=== PATIENT | male | born 1975 | race African-American/Black ===

== ENCOUNTER 2023-10-29 14:16 | Inpatient (IN) | payer SELFPAY ==
[~2023-10-29] VITALS: Ht 180.3 cm; Wt 91.0 kg
[2023-10-29] VITALS (25 sets, daily range): BP systolic 101–144; BP diastolic 61–90
[2023-10-29] MEDS ORDERED: AMLODIPINE BESYL5 MG PO (14:51)
[2023-10-29] MEDS ORDERED: MORPHINE SULFATE 4 MG/ML VIAL IV STA (14:53)
[2023-10-29] MEDS ORDERED: ONDANSETRON HCl 4 MG/2 ML SDV IV STA (14:53)
[2023-10-29] MEDS ORDERED: SODIUM CHLORIDE 0.9% 1,000 ML IV STA ×2 (14:53→20:06)
[2023-10-29 15:38] LABS: BASO% 0.1 % (0-3); HEMATOCRIT 46.6 % (39.0-50.0); IMMATURE GRANULOCYTES 0.1 % (0.0-5.0); LYMPH% 13.4 % (15-41); MEAN CELL VOLUME 85.7 fL CALC (80.0-100.0); MEAN CORPUSCULAR HGB 29.4 pG CALC (26.0-32.0); MEAN CORPUSCULAR HGB CONC 34.3 g/dL CAL (32.0-36.0); MONO% 5.8 % (2-13); NEUT# 7.14 thou/uL (1.82-7.42); NEUT% 80.6 % (42-76); RED BLOOD COUNT 5.44 mill/uL (4.70-6.10); RED CELL DISTRI WIDTH 14.1 % (11.5-15.5)
[2023-10-29 15:39] LABS: URINE BILIRUBIN - DIPSTICK Negative (NEGATIVE); URINE BLOOD DIPSTICK Negative (NEGATIVE); URINE GLUCOSE - DIPSTICK Negative (NEGATIVE); URINE KETONE Negative (NEGATIVE); URINE LEUK ESTERASE Negative (NEGATIVE); URINE NITRITE - DIPSTICK Negative (Negative); URINE PH 6.5 (4.5-8.0); URINE PROTEIN - DIPSTICK Negative (NEG-TRACE); URINE SPECIFIC GRAVITY 1.025; URINE UROBILINOGEN - DIPSTICK 0.2 E.U./dL (0.2)
[2023-10-29 15:45] LABS: URINE COLOR Yellow
[2023-10-29 15:48] LABS: ALBUMIN 4.5 g/dL (3.2-5.0); ALKALINE PHOSPHATASE 87 u/l (38-126); AMYLASE 93 u/l (30-110); ANION GAP 9 (6-22 (CALC)); BILIRUBIN, TOTAL 0.8 mg/dL (0.2-1.3); BUN 16 mg/dL (9-20); BUN/CREATININE RATIO 17 (12-20 (CALC)); CARBON DIOXIDE 28 mmol/l (22-30); CHLORIDE 104 mmol/l (95-108); CREATININE 0.9 mg/dL (0.7-1.3); ESTIMATED GFR 105 ML/MIN (>=90 (CALC)); LIPASE 50 u/l (23-300); POTASSIUM 3.9 mmol/l (3.5-5.1); SGOT/AST 36 u/l (17-59); SODIUM 137 mmol/l (137-146); TOTAL PROTEIN 8.6 g/dL (6.3-8.2)
[2023-10-29] MEDS ORDERED: MORPHINE SULFATE 4 MG/ML VIAL IV ONE (15:50)
[2023-10-29] MEDS ORDERED: SODIUM CHLORIDE 0.9% 1,000 ML IV ONE (15:55)
--- NOTE | 2023-10-29 15:55 | NUR ---
LACTIC 2.4, SOTO AWARE.
--- NOTE | 2023-10-29 17:59 | NUR ---
LACTIC 2.5, CHARLES MADE AWARE.
[2023-10-29] MEDS ORDERED: SODIUM CHLORIDE 0.45% 1,000 ML IV ONE (18:00)
[2023-10-29] MEDS ORDERED: oxyCODONE 5MG/ ACETAMINOPHEN 325MG TAB PO ONE (18:10)
[2023-10-29] MEDS ORDERED: METOPROLOL TARTRATE 5 MG/5 ML VIAL IV ONE ×2 (18:55→19:50)
[2023-10-29] MEDS ORDERED: DICYCLOMINE HCL 20 MG/2 ML VIAL IM ONE (18:55)
[2023-10-29] MEDS ORDERED: HYDROmorphone HCL 2 MG/AMP IV ONE ×2 (19:05→20:20)
--- NOTE | 2023-10-29 19:25 | NUR ---
ART BEDSIDE FOR DISCUSSION OF RESULTS AND FURTHER PLAN OF CARE AT THIS TIME.
--- NOTE | 2023-10-29 19:30 | NUR ---
PT MEDICATED PER ALL MD ORDERS AT THIS TIME, PT UPDATED ON CONTINUOUS PLAN OF CARE WITH NO FURTHER QUESTIONS OR CONCERNS AT THIS TIME, PT VOICES APPRECIATION OF CARE, IVF AND ABX RUNNING AT THIS TIME, PT VOICES MILD RELIEF AT THIS TIME, AWAITING FOR REPEAT LACTIC ACID REDRAW AFTER IVF AT THIS TIME PER MD. FAMILY AT BEDSIDE.
[2023-10-29] MEDS ORDERED: MOTRIN800 MG PO (19:31)
[2023-10-29] MEDS ORDERED: CIPROFLOXACN500 MG PO (19:31)
[2023-10-29] MEDS ORDERED: KETOROLAC TROMETHAMINE 30 MG/ML SDV IV ONE (20:40)
[2023-10-29] MEDS ORDERED: ACETAMINOPHEN 325 MG/TAB PO ONE (20:45)
--- NOTE | 2023-10-29 20:50 | NUR ---
AT BEDSIDE FOR DISCUSSION DUE TO PT'S FAMILY CONCERNS AT THIS TIME.
[2023-10-29] MEDS ORDERED: PROMETHAZINE HCL 25 MG/ML AMP IV ONE (20:55)
--- NOTE | 2023-10-29 21:10 | NUR ---
PT MEDICATED PER ORDERS AT THIS TIME, PT VERBALIZES APPRECIATION OF CARE, PT VOICES UNDERSTANDING OF CONTINUED PLAN OF CARE AND PLAN FOR ADMISSION AT THIS TIME. PT AWAITING ALL FURTHER ORDERS/ROOM ASSIGNMENT.
[2023-10-29] MEDS ORDERED: AMLODIPINE BESY10 MG PO (21:13)
[2023-10-29] MEDS ORDERED: AVALIDE 150-12.1 TAB PO (21:40)
[2023-10-29] MEDS ORDERED: DiphenhydrAMINE HCL 50 MG/ML SDV IV PRN (21:45)
[2023-10-29] MEDS ORDERED: MORPHINE SULFATE 4 MG/ML VIAL IV PRN (21:45)
[2023-10-29] MEDS ORDERED: HYDROmorphone HCL 2 MG/AMP IV PRN (21:45)
[2023-10-29] MEDS ORDERED: ACETAMINOPHEN 325 MG/TAB PO PRN (21:45)
[2023-10-29] MEDS ORDERED: Pantoprazole Sodium 40 MG VIAL (Protonix) IV SCH (21:45)
[2023-10-29] MEDS ORDERED: MAGNESIUM HYDROXIDE 30 ML UDC PO PRN (21:45)
[2023-10-29] MEDS ORDERED: KETOROLAC TROMETHAMINE 30 MG/ML SDV IV PRN (21:45)
[2023-10-29] MEDS ORDERED: LACTATED RINGER'S 1,000 ML IV PRN (21:45)
[2023-10-29] MEDS ORDERED: ONDANSETRON HCl 4 MG/2 ML SDV IV PRN (21:45)
[2023-10-29] MEDS ORDERED: METOCLOPRAMIDE HCL 10 MG/2 ML SDV IV PRN (21:50)
--- NOTE | 2023-10-29 22:00 | NUR ---
REPORT CALLED TO MILA MARCUS ON MS2 AT THIS TIME. PT AWAITING TRANSPORT TO [facility].
[2023-10-29] MEDS ORDERED: hydrALAZINE HCL 20 MG/ML VIAL(1 ML) IV PRN (22:10)
--- NOTE | 2023-10-29 22:15 | NUR ---
PT TRANSPORTED TO [facility] AT THIS TIME [facility]IA [facility]. PT AMB TO BR ON MS2 WITH STEADY GAIT AT THIS TIME, PT VOICES APPRECIATION OF CARE, NURSE AT BEDSIDE.
[2023-10-29] MEDS ORDERED: LABETALOL HCL 20 MG/ 4 ML CARTRG IV PRN (22:35)
--- NOTE | 2023-10-29 23:06 | NUR ---
PT TRANSPORTED BY ED STAFF TO ROOM 269 VIA WHEELCHAIR WITH O2 AT 2216. PT IS A&O X3. PT DOES NOT COMPLAIN OF ANY PAIN AT THIS TIME. ABDOMEN IS DISTENDED AND FIRM. PT IS ABLE TO AMBULATE INDEPNDENTLY. PT IS ABLE TO COMMUNICATE AND MAKE NEEDS KNOWN. LUNGS SOUNDS CLEAR IN THE UPPER LOBES, DIMINISHED IN THE LOWER LOBES. PERIPHERAL PULSES STRONG. NC IN PLACE WITH 2L O2. BOWEL SOUNDS HYPOACTIVE IN ALL FOUR QUADRANTS. THE PT DENIES NAUSEA AT THIS TIME. 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 PT EDUCATED ON MEDICATION SCHEDULE AND PLAN OF CARE. SAFETY PRECAUTIONS IN PLACE. PT EDUCATED ON ORDER FOR STOOL SAMPLE, PT DENIES NEEDING TO GO AT THIS TIME.
[2023-10-30 04:35] VITALS: BP 118/79
--- NOTE | 2023-10-30 04:52 | NUR ---
PT RESTING IN BED WITH EYES CLOSED AT THIS TIME. THIS DESIGN ENG OBTAINED VS. PT DOES COMPLAIN OF ABDOMINAL DISCOMFORT. DID OFFER PAIN MEDICATION PER EMAR, PT REFUSED AT THIS TIME. NO FURTHER COMPLAINTS VOICED FROM PT. NC IN PLACE AT 2L O2. CALL LIGHT IN REACH AND SAFETY PRECAUTIONS IN PLACE.
[2023-10-30 05:15] LABS: BASO% 0.1 % (0-3); HEMATOCRIT 42.1 % (39.0-50.0); HEMOGLOBIN 14.4 g/dl (14.0-18.0); IMMATURE GRANULOCYTES 0.7 % (0.0-5.0); LYMPH% 7.4 % (15-41); MEAN CELL VOLUME 86.3 fL CALC (80.0-100.0); MEAN CORPUSCULAR HGB 29.5 pG CALC (26.0-32.0); MEAN CORPUSCULAR HGB CONC 34.2 g/dL CAL (32.0-36.0); MONO% 4.8 % (2-13); NEUT# 13.39 thou/uL (1.82-7.42); RED BLOOD COUNT 4.88 mill/uL (4.70-6.10); RED CELL DISTRI WIDTH 14.1 % (11.5-15.5)
[2023-10-30 05:29] LABS: BILIRUBIN, TOTAL 1.1 mg/dL (0.2-1.3); CHOLESTEROL HDL RATIO 2.9 (<4.4 (CALC)); CREATININE 0.9 mg/dL (0.7-1.3); MAGNESIUM 1.3 mg/dL (1.6-2.3); POTASSIUM 4.2 mmol/l (3.5-5.1)
[2023-10-30 05:33] LABS: ALBUMIN 3.4 g/dL (3.2-5.0); TOTAL PROTEIN 6.5 g/dL (6.3-8.2)
[2023-10-30] MEDS ORDERED: PIPERACILLIN Sodium-Tazobactam 3.375 GM in SODIUM CHLORIDE 0.9% 100 ML IV SCH (06:30)
[2023-10-30] MEDS ORDERED: MAGNESIUM SULFATE HEPTAHYDRATE 100 ML IV SCH (07:00)
[2023-10-30 07:17] VITALS: BP 130/84
--- NOTE | 2023-10-30 07:45 | NUR ---
PATIENT A/O X3; ON 2L , NOT DEPENDEDNT AT HOME; DENIED ANY N/D/V AT THIS TIME; COMPLAINT OF DISCOMFORT IN RECTAL AREA, THAT LEADS TO SOME ISSUES URINATING; IV SITE CLEAN AND INTACT RUNING WITH LR @125; MEDICATION REVIWED; CALL LIGHT WITHIN REACH,VERBALIZED UNDERSTANDING ON HOW TO USE, PERSONAL ITEMS WITHIN REACH, BED IN [facility]
[2023-10-30] MEDS ORDERED: TAMSULOSIN HCL 0.4 MG CAP PO SCH (08:30)
[2023-10-30] MEDS ORDERED: Polyethylene Glycol 3350 17 GM/PKT PO SCH (09:00)
[2023-10-30] MEDS ORDERED: PIPERACILLIN Sodium-Tazobactam 4.5 GM in SODIUM CHLORIDE 0.9% 100 ML IV SCH (12:00)
--- NOTE | 2023-10-30 12:18 | NUR ---
PATEINT A/O X3; ON 2L OF ; NOT DEPENDENT; BREATHING UNLABORED AND EVEN; FAMILY IN ROOM WITH PATIENT; STATES HIS PAIN REDUCED TO A 1 AND FEVER WAS BROKEN; AT 1100 IT WAS 101.5 RECHECK TO 98.0; DENED ANY N/D/V AT THIS TIME; IV SITE CLEAN AND INTACT RUNNING WIH ZOSYN AND LR; MEDICATION REVIWED; URINE SAMPLE COLLECTED AND SENT TO LABS, URINE A DARK LUX COLOR; CALL LIGHT WITHIN REACH,VERBALIZED UNDERSTANDING ON HOW TO USE,PEROSNAL ITEMS WITHIN REACH, BEDIN LOWEST POSTION
--- NOTE | 2023-10-30 16:00 | NUR ---
PATIENT RESTING IN BED; WATCHING TV; ON 2L OF ; BREATHING UNLABORED AND EVEN; STATED SOME DISCOMFORT IN RECTAL AREA; AND REQUESTED A TEMP CHECK; TEMP WAS 99.9 TORADOL WAS GIVEN UNABLE TO GIVE TYLENOL DUE TO TIME SCHDULE; COOL CLOTH WAS GIVE; FAMILY IN ROOM WITH PATIENT; MEDICATION REVIWED; TEXTED DR. PA OF TEMP STATUS; TELE LEADS WAS APPLIED PER ORDER; CALL LIGHT WITHIN REACH,VERBALIZDED UNDERSTANDING ON HOW TO USE, PERSONAL ITEMS IWTHIN REACH, BED IN LOWEST POSTION; BED IN LOWEST POSTION
[2023-10-30] MEDS ORDERED: SODIUM CHLORIDE 0.9% 1,000 ML IV SCH (16:50)
[2023-10-30] MEDS ORDERED: VANCOMYCIN HCL 1 GM in SODIUM CHLORIDE 0.9% 250 ML IV SCH (17:10)
--- NOTE | 2023-10-30 17:21 | NUR ---
PATIENT HEART RATE 130-140, MESSAGED DR. PA WHICH HE ORDERED A BOLUS OF NS; STAT EKG AND BLADDER SCAN; EKG COMPLETED AND SENT TO DR. PA; PATIENT TOLERATING BOLUS WE;; COOL WARM CLOTH PROVIDED FOR TEMP; BLADDER SCAN SHOWED 181; PATIENT STATES HE HAVE BEEN URINATING AND DOES NOT HAVE ANY URGE TO URINATE; DR. PA WILL BE UPDATED AFTER BOULUS FOR ANY NEW ORDERS
[2023-10-30] MEDS ORDERED: HYDROmorphone HCL 2 MG/AMP IV PRN (17:30)
[2023-10-30 17:33] LABS: BASO% 0.1 % (0-3); HEMATOCRIT 37.2 % (39.0-50.0); IMMATURE GRANULOCYTES 0.5 % (0.0-5.0); LYMPH% 6.9 % (15-41); MEAN CELL VOLUME 85.7 fL CALC (80.0-100.0); MEAN CORPUSCULAR HGB CONC 34.9 g/dL CAL (32.0-36.0); MONO% 5.5 % (2-13); NEUT# 15.12 thou/uL (1.82-7.42); RED BLOOD COUNT 4.34 mill/uL (4.70-6.10)
[2023-10-30] MEDS ORDERED: VANCOMYCIN HCL 1 GM in SODIUM CHLORIDE 0.9% 250 ML IV ONE (17:35)
[2023-10-30] MEDS ORDERED: SODIUM CHLORIDE 0.9% 500 ML IV ONE (18:05)
--- NOTE | 2023-10-30 18:24 | NUR ---
HEART RATE STILL ELEVATED IN THE 130, DR. PA ORDERED BOLUS 500 AND CRITICAL WAS CALLED FOR [facility] [place] FOR 7.290
[2023-10-30 18:30] VITALS: BP 141/84
[2023-10-30 18:34] VITALS: BP 141/84
[2023-10-30] MEDS ORDERED: VANCOMYCIN HCL 1 GM/VIAL IV SCH (19:00)
--- NOTE | 2023-10-30 20:15 | NUR ---
RECEIVED REPORT FROM [facility]SE PALMIRA CERDA LPN. PT NOTED SITTING UP IN BED HIGH FOWLERS, AND DAUGHTER PRESENT IN ROOM. PT DENIES ANY PAIN AT THIS TIME BUT DOES C/O ABD TIGHTNESS AND SORENESS. ABD IS DISTENDED AND FIRM, BOWEL SOUNDS HYPOACTIVE IN ALL 4 QAUDRANTS. ABD TENDERNESS IN LUQ,LLQ, AND UMBILICUS REGION. PT DENIES ANY BM TODAY, STATES LAST BM WAS 10/27/23. ADMINISTERED PT MEDICATION PER EMAR FOR CONSTIPATION. ENCOURAGED PT TO AMBULATE UP AND DOWN HALLWAY TO INCREASE BOWEL ACTIVITY. PT WAS ABLE TO AMBULATED WTIH STEADY GAIT, DID BECOME SOB ON EXCERTION. LUNG SOUNDS CLEAR DID PLACE PT ON 2L 02 NC. PT DID C/O CHILLS, ORAL TEMP TAKEN READING 99.7F, DID ADMINSTER PT TYELONOL PER EMAR FOR FEVER. PT DOES HAVE TELE MONITOR IN PLACE, READING IS 12-130'S SUSTAINING. MD IS AWARE. EDUCATED PT ON PLAN OF CARE, MED SCHEDULE AND SPECIMEN NEEDED. ADMINISTERED IV ABX PER EMAR LATE, WERE NOT ADMINISTERED ON PREVIOUS SHIFT. CALL LIGHT WITHIN REACH AND SAFETY PRECAUTIONS IN PLACE.
[2023-10-30] MEDS ORDERED: VANCOMYCIN HCL 1.25 GM in SODIUM CHLORIDE 0.9% 250 ML IV SCH (21:00)
[2023-10-30] MEDS ORDERED: CLARIFY DOSE IV SCH (21:00)
[2023-10-30] MEDS ORDERED: ENOXAPARIN SODIUM 40 MG/0.4 ML SYR SC SCH (21:00)
[2023-10-30] MEDS ORDERED: DIATRIZOATE MEGLUMINE & SODIUM 30 ML/BTL BTL PO SCH (23:00)
[2023-10-30 23:38] VITALS: BP 153/94
[2023-10-30 23:53] VITALS: BP 153/94
[2023-10-31] VITALS (29 sets, daily range): BP systolic 135–167; BP diastolic 90–107
--- NOTE | 2023-10-31 00:18 | NUR ---
ASSISTED PT TO RESTROOM,PT WAS ABLE TO HAVE SMALL LOOSE BROWN BM. SPECIMEN OBTAINED PER PHYSCICIAN ORDER. PT COMPLETED ORAL CONTRAST ADMINISTRATION PER EMAR AND RADIOLOGY NOTIFIED. PT DID C/O SEVERE ABD PAIN AND NAUSEA. ADMINISTERED MEDICAIOTN PER EMAR FOR BOTH. PT LAYING IN BED ON RT SIDE, EYES CLOSED. NASAL CANNULA IN PLACE. TELE MONITOR IN PLACE STILL READING 120-130'S. CALL LIGHT WITHIN REACH AND SAFETY PRECAUTIONS IN PLACE.
--- NOTE | 2023-10-31 00:34 | NUR ---
NOTED AFTER PT WAS ABLE TO HAVE BOWEL MOVEMENT, C/O SEVERE PAIN IN RECTAL AREA.
--- NOTE | 2023-10-31 01:17 | NUR ---
PT TRANSPORTED DOWN TO RADIOLOGY VIA WHEELCHAIR, IMAAGING COMPLETED PER PHYSICIANS ORDER. PT TRANSPORTED BACK TO MED SURG RM 269, LAYING IN BED ON RT SIDE. PT STATES PAIN HAS SUBSIDED AT THIS TIME. TELE MONITOR IN PLACE. CALL LIGHT WITHIN REACH AND SAFETY PRECAUTIONS IN PLACE.
--- NOTE | 2023-10-31 02:10 | NUR ---
PT HR AT THIS TIME SUSTAINING FROM 138-146. PT WAS STANDING UP ON SIDE OF BED C/O RECTUM PAIN, STATING SEVERE PAIN AND PRESSURE. ASSESSED AREA AND APPEARS WITHIN NORMAL. PT DENIED NEEDING TO USE THE BATHROOM. ADMINSITERED PAIN MEDICAITON PER EMAR AND TYLENOL FOR FEVER, PT TEMP 101.1 TEMPORAL. ICE PACKS APPLIED TO HEAD AND UNDER ARMS, PT ALSO OFFERED ICE PACK TO APPLY ON BUTTOCKS FOR COMFORT. PT LAYING IN BED ON RT SIDE AT THIS TIME. TELE MONITOR IN PLACE, NASAL CANNULA IN PLACE. CALL LIGHT WITHIN REACH AND SAFETY PRECAUTIONS IN PLACE.
--- NOTE | 2023-10-31 02:41 | NUR ---
PHYSICIAN CALLED @0225 AND INFORMED OF PT STATUS. PT HR SUSTAINING BETWEEN 137-140 AT THIS TIME, PT LAYING IN BED SUPINE WITH ICE PACKS AND PAIN MEDICATION ALREADY ADMINISTERED. NASAL CANNULA IN PLACE. PT STILL C/O PAIN AND PRESSURE IN RECTUM AREA. EKG COMPLETED PER PHYSICIAN ORDER, NO OTHER NEW ORDERS AT THIS TIME. TELE MONITOR IN PLACE. CALL LIGHT WITHIN REACH AND SAFETY PRECAUTIONS IN PLACE.
[2023-10-31] MEDS ORDERED: DICYCLOMINE HCL 10 MG/CAP PO SCH (03:45)
[2023-10-31] MEDS ORDERED: AZITHROMYCIN 500 MG in SODIUM CHLORIDE 0.9% 250 ML IV SCH (04:00)
--- NOTE | 2023-10-31 04:00 | NUR ---
EMERGENCE TELER OSMANY CALLED @[address] TO [address] PT [address] ABD/PELVIC FINDINGS. PHSICIAN MEDICAL CHEMIST NOTIFIED OF FIDNINGS AND PT STATUS AT THIS TIME. PT PLACED ON NPO DIET PER PHYSICIAN. PT LAYING IN BED ON LEFT SIDE, STILL C/O PAIN IN RECTUM 7 OUT OF 10. TELE MONITOR IN PLACE AND NASAL CANNULA IN PLACE. NURSING [facility] LEAD INFORMED OF PT STATUS AND POC. PT EMERGENCY CONTACT LUCINA () NOTIFIED OF PT UPDATED STATUS AND POC. CALL LIGHT WITHIN REACH AND SAFETY PRECAUTIONS IN PLACE.
[2023-10-31 04:12] LABS: BASO% 0.1 % (0-3); HEMATOCRIT 38.3 % (39.0-50.0); HEMOGLOBIN 13.2 g/dl (14.0-18.0); IMMATURE GRANULOCYTES 1.4 % (0.0-5.0); LYMPH% 5.9 % (15-41); MEAN CELL VOLUME 86.5 fL CALC (80.0-100.0); MEAN CORPUSCULAR HGB 29.8 pG CALC (26.0-32.0); MEAN CORPUSCULAR HGB CONC 34.5 g/dL CAL (32.0-36.0); MONO% 5.2 % (2-13); NEUT# 16.57 thou/uL (1.82-7.42); NEUT% 87.4 % (42-76); RED BLOOD COUNT 4.43 mill/uL (4.70-6.10); RED CELL DISTRI WIDTH 14.2 % (11.5-15.5)
[2023-10-31 04:16] LABS: INTERNATIONAL NORMALIZED RATIO 1.3 RATIO (0.7-1.3)
[2023-10-31 04:19] LABS: PROTHROMBIN TIME 12.1 SECONDS (9.0-12.5)
[2023-10-31 04:20] LABS: ALBUMIN 3.3 g/dL (3.2-5.0); BILIRUBIN, TOTAL 0.9 mg/dL (0.2-1.3); POTASSIUM 3.8 mmol/l (3.5-5.1); TOTAL PROTEIN 6.4 g/dL (6.3-8.2)
[2023-10-31 04:30] LABS: MAGNESIUM 2.3 mg/dL (1.6-2.3)
[2023-10-31 04:48] LABS: C-REACTIVE PROTEIN 43.6 mg/dL (0-0.9)
[2023-10-31] MEDS ORDERED: AZITHROMYCIN 500 MG/VIAL SDV IV ONE (04:52)
[2023-10-31] MEDS ORDERED: SODIUM CHLORIDE 0.9% 100 ML IV ONE (04:53)
[2023-10-31] MEDS ORDERED: SODIUM CHLORIDE 0.9% 500 ML IV ONE (05:00)
--- NOTE | 2023-10-31 05:45 | NUR ---
PT TRANSPORTED DOWN TO OR WITH OR STAFF NURSES. PT AT SIDE.
[2023-10-31] MEDS ORDERED: FAMOTIDINE 10MG/ML 2ML SDV IV ONE (06:19)
[2023-10-31] MEDS ORDERED: ALBUTEROL SULFATE 2.5 MG VIAL ONE (10:13)
[2023-10-31] MEDS ORDERED: HYDROmorphone HCL 2 MG/AMP IV PRN ×2 (10:30→10:36)
[2023-10-31] MEDS ORDERED: VANCOMYCIN HCL 1 GM in SODIUM CHLORIDE 0.9% 250 ML IV SCH (10:30)
[2023-10-31] MEDS ORDERED: ONDANSETRON HCl 4 MG/2 ML SDV IV PRN (10:30)
[2023-10-31] MEDS ORDERED: KETOROLAC TROMETHAMINE 30 MG/ML SDV ONE (11:02)
[2023-10-31] MEDS ORDERED: SODIUM CHLORIDE 0.9% 1,000 ML IV SCH ×2 (11:30→13:55)
[2023-10-31] MEDS ORDERED: STERILE WATER FOR IRRIGATION 1,000 ML BTL IR ONE (11:36)
[2023-10-31] MEDS ORDERED: SODIUM CHLORIDE 3,000 ML BAG FOR IRRIGATION IR ONE (11:36)
[2023-10-31] MEDS ORDERED: SODIUM CHLORIDE 1,000 ML BTL IR ONE (11:36)
[2023-10-31] MEDS ORDERED: SODIUM CHLORIDE 0.9% 1,000 ML IV ONE (11:43)
--- NOTE | 2023-10-31 12:30 | NUR ---
PT ARRIVED TO ICU BY HOSPITAL BED FROM PACU. REPORT RECEIVED FROM PACU NURSE AT BEDSIDE. PT IS DROWSY BUT AROUSABLE, DENIES ANY PAIN. PT IS SINUS TACH 120'S ON MONITOR; HYPERTENSIVE; ON 3LNC. TEMP 99.0 ORAL. DRESSINGS ON ABDOMEN CLEAN/DRY. PT HAS REMAINDER OF NS BOLUS INFUSING. VSS.
--- NOTE | 2023-10-31 13:15 | NUR ---
FULL ASSESSMENT COMPLETED. PT RESPONDING APPROPRIATELY. LUNG SOUNDS CLEAR; PT REMAINS ON 3LNC. NO COUGH OR SOB NOTED. HR REMAINS ELEVATED 120'S SINUS TACH. BS HYPOACTIVE. PORTIA DRAINS X 2 HAVE BRIGHT RED DRAINAGE. NG TUBE IN R NARES TO LOW CONTINUOUS SUCTION; NO DRAINAGE NOTED FROM NG TUBE AT THIS TIME. MINIMAL DRAINAGE FROM NEW COLOSTOMY IS BRIGHT RED LIQUID. PT'S ABDOMEN DISTENDED/FIRM/TENDER. PULSES WEAK ALL EXTREMETIES. SKIN W/D AND INTACT OTHER THAN SURGICAL SITES. PT REMAINS AFEBRILE, TEMPORAL TEMPERATURE 98.0. PT REPORTS PAIN 2/10. AGUILA CATHETER IN PLACE. PT REMAINS TACHYCARDIC; BP IMPROVED. PT HAS FAMILY AT BEDSIDE. DR. PA ALSO AT BEDSIDE TO SPEAK WITH PT AND FAMILY. CALL LIGHT IN REACH.
[2023-10-31] MEDS ORDERED: MIDAZOLAM HCL 2 MG/2 ML VIAL IV ONE (13:40)
[2023-10-31] MEDS ORDERED: ROCURONIUM BROMIDE 10 MG/ML 5ML VIAL IV ONE (13:40)
[2023-10-31] MEDS ORDERED: LACTATED RINGER'S 1,000 ML BAG IV ONE (13:40)
[2023-10-31] MEDS ORDERED: SUCCINYLCHOLINE CHLORIDE 20 MG/ML 10ML VIAL IV ONE (13:40)
[2023-10-31] MEDS ORDERED: MORPHINE SULFATE 4 MG/ML VIAL IV ONE (13:40)
[2023-10-31] MEDS ORDERED: hydrALAZINE HCL 20 MG/ML VIAL(1 ML) IV ONE (13:40)
[2023-10-31] MEDS ORDERED: ACETAMINOPHEN 1,000 MG/100 ML VIAL IV ONE (13:40)
[2023-10-31] MEDS ORDERED: PROPOFOL 200 MG/20 ML VIAL IV ONE (13:40)
[2023-10-31] MEDS ORDERED: LIDOCAINE HCL 2% 2ML SDV IV ONE (13:40)
[2023-10-31] MEDS ORDERED: SUGAMMADEX SODIUM 200 MG/2 ML SDV IV ONE (13:40)
--- NOTE | 2023-10-31 14:43 | NUR ---
NO CHANGES TO PT STATUS. 1L BOLUS OF NS INFUSING PER ORDERS. FAMILY REMAINS AT BEDSIDE.
--- NOTE | 2023-10-31 15:48 | NUR ---
PT GIVEN MOUTH MOISTURIZER. DENIES ANY OTHER NEEDS AT THIS TIME. CALL LIGHT IN REACH. FAMILY AT BEDSIDE. VSS BUT HR REMAINS ELEVATED EVEN AFTER NS BOLUS.
--- NOTE | 2023-10-31 15:55 | NUR ---
PT'S HR REVIEWED WITH DR. PA. NO NEW ORDERS AT THIS TIME.
--- NOTE | 2023-10-31 16:27 | NUR ---
PT REQUESTED PAIN MEDICATION FOR WORSENING ABDOMINAL PAIN. PT MEDICATED PER MAR AND IS NOW RESTING COMFORTABLY. FAMILY REMAINS AT BEDSIDE.
[2023-10-31] MEDS ORDERED: METOPROLOL TARTRATE 5 MG/5 ML VIAL IV PRN (16:50)
--- NOTE | 2023-10-31 18:18 | NUR ---
PT WAS REPORTING INCREASED PAIN; MEDICATED PER JUN. FAMILY REMAINS AT BEDSIDE. PT'S TEMPERATURE ELEVATED AT 100.8; DR. PA NOTIFIED AND ORDER GIVEN FOR OFIRIMEV. PT'S HR REMAINS TACHYCARDIC.
[2023-10-31] MEDS ORDERED: ACETAMINOPHEN 1,000 MG/100 ML VIAL IV PRN (18:20)
--- NOTE | 2023-10-31 18:30 | NUR ---
Received report from Jojo SALGADO. Patient A&Ox4. Eldridge cath in place. 2 PORTIA drains identified. Sigmoidostomy in place. Patient bed bound currently. Patient febrile, IV Tylenol given.
--- NOTE | 2023-10-31 18:33 | NUR ---
PT'S HR WAS SUSTAINING >130'S FOR >30 MINUTES; PT GIVEN PRN METOPROLOL PER JUN. OFIRIMEV TO BE GIVEN ONCE VERIFIED BY PHARMACY. PT ASLEEP IN BED. FAMILY AT BEDSIDE.
[2023-10-31] MEDS ORDERED: SODIUM CHLORIDE 0.9% 250 ML IV ONE (23:19)
--- NOTE | 2023-10-31 23:54 | NUR ---
Spoke with Sakina SALGADO the AOD concerning calling provider Dr. Portillo for the patient's heart rate and SBP in the 100s. Per Sakina SALGADO, notified Dr. Portillo. Awaiting response from Dr. Portillo
[2023-11-01] VITALS (35 sets, daily range): BP systolic 134–171; BP diastolic 65–114
--- NOTE | 2023-11-01 00:36 | NUR ---
Spoke with provider Dr. Portillo concerning the patient's heart rate between 110 to 120s. Per provider, no new orders given needed.
[2023-11-01 04:51] LABS: BASO% 0.1 % (0-3); EOS% 0.1 % (0-8); HEMATOCRIT 36.2 % (39.0-50.0); HEMOGLOBIN 12.4 g/dl (14.0-18.0); IMMATURE GRANULOCYTES 0.6 % (0.0-5.0); LYMPH% 10.7 % (15-41); MEAN CELL VOLUME 87.4 fL CALC (80.0-100.0); MEAN CORPUSCULAR HGB CONC 34.3 g/dL CAL (32.0-36.0); MONO% 6.8 % (2-13); NEUT# 12.93 thou/uL (1.82-7.42); NEUT% 81.7 % (42-76); RED BLOOD COUNT 4.14 mill/uL (4.70-6.10); RED CELL DISTRI WIDTH 14.5 % (11.5-15.5)
[2023-11-01 05:31] LABS: ALBUMIN 2.8 g/dL (3.2-5.0); ALKALINE PHOSPHATASE 68 u/l (38-126); ANION GAP 8 (6-22 (CALC)); BILIRUBIN, TOTAL 0.6 mg/dL (0.2-1.3); BUN 15 mg/dL (9-20); BUN/CREATININE RATIO 15 (12-20 (CALC)); CARBON DIOXIDE 25 mmol/l (22-30); CHLORIDE 112 mmol/l (95-108); ESTIMATED GFR 92 ML/MIN (>=90 (CALC)); MAGNESIUM 2.1 mg/dL (1.6-2.3); POTASSIUM 3.7 mmol/l (3.5-5.1); SGOT/AST 37 u/l (17-59); SODIUM 141 mmol/l (137-146); TOTAL PROTEIN 5.6 g/dL (6.3-8.2)
[2023-11-01 05:45] LABS: C-REACTIVE PROTEIN > 27.0 mg/dL (0-0.9)
[2023-11-01] MEDS ORDERED: METOPROLOL TARTRATE 5 MG/5 ML VIAL IV PRN (07:36)
[2023-11-01] MEDS ORDERED: hydrALAZINE HCL 20 MG/ML VIAL(1 ML) IV PRN (07:40)
--- NOTE | 2023-11-01 07:40 | NUR ---
DR. BENITEZ AT BEDSIDE TO ASSESS PATIENT.
--- NOTE | 2023-11-01 07:59 | NUR ---
REPORT RECEIVED FROM NIGHT NURSE. JACQUIE X4. SINUS TACH ON TELE SUSTAINED IN 130S. MEDICATED WITH LOPRESSOR, HR NOW IN 120S. PULSES STRONG. LUNG SOUNDS CLEAR AND NO LABORED. NO COUGH OR SOB NOTED. BOWEL SOUNDS ACTIVE. ABDOMEN DISTENDED. DRESSING CLEAN AND DRY. PATIENT REPORTING MILD PAIN BUT DECLINES PAIN MEDICATION AT THIS TIME.
[2023-11-01] MEDS ORDERED: amLODIPine BESYLATE 5 MG/TAB PO SCH (09:00)
--- NOTE | 2023-11-01 09:12 | NUR ---
PATIENT MEDICATION PRIOR TO DRESSING CHANGE. DRESSING CHANGE COMPLETED. MIDLINE INCISION INTACT. NO REDNESS OR DRAINAGE NOTED. PATIENT TOLERATED WELL.
--- NOTE | 2023-11-01 11:03 | NUR ---
DR. AL AT BEDSIDE TO ASSESS PATIENT. NG TUBE PULLED. VO FOR PATIENT TO HAVE ICE CHIPS ONLY. PATIENT SPOUSE AT BEDSIDE. ALL QUESTIONS ANSWERED. PATIENT INSTRUCTED ON USE OF INCENTIVE SPIROMETER.
[2023-11-01] MEDS ORDERED: LABETALOL HCL 20 MG/ 4 ML CARTRG IV SCH (13:00)
--- NOTE | 2023-11-01 13:00 | NUR ---
PATIENT STATUS UNCHANGED. AT BEDSIDE. CALL LIGHT IN REACH. VSS.
--- NOTE | 2023-11-01 15:00 | NUR ---
PATIENT STATUS UNCHANGED. PATIENT DENIES ANY PAID AT THIS TIME. SPOUSE AT BEDSIDE. VSS.
--- NOTE | 2023-11-01 15:58 | NUR ---
PATIENT AMBULATED TO CHAIR WITH STANDBY ASSIST. PATIENT BECAME SLIGHTLY SOB, O2 INCREASED FROM 1L TO 2L. BEDDING CHANGED. PORTIA DRAINS EMPTY. PATIENT SITTING COMFORTABLY IN CHAIR. DENIES ANY NEEDS AT THIS TIME. CALL LIGHT IN REACH. SPOUSE AT BEDSIDE. VSS.
--- NOTE | 2023-11-01 17:58 | NUR ---
PT HAD SMALL AMOUNT OF BLOODY DRAINAGE ON ABDOMINAL DRESSING. DRESSING CHANGED; SITE APPEARS HEALTHY. NO REDNESS OR SWELLING.
--- NOTE | 2023-11-01 19:39 | NUR ---
BEDSIDE REPORT RECEIVED FROM OFF GOING NURSE. PATIENT ALERT AND ORIENTED X4 AND ABLE TO MAKE NEEDS KNOWN. PATIENT DENIES PAIN AT THIS TIME BUT EDUCATED ON PAIN MANAGEMENT AND ENCOURAGED TO EXPRESS PAIN TO BE TREATED ACCORDINGLY. RESPIRATIONS EVEN AND UNLABORED ON O2 @ 1.5 L/MIN VIA NC. DRSSING TO MIDLINE ABDOMEN CLEAN, DRY AND INTACT. DRESSING TO PORTIA DRAINS 1 AND 2 CLEAN [address] DRY. COLOSTOMY IN PLACE AND EMPTY AT THIS TIME. ABDOMEN DISTEDNED, FIRM AND TENDER TO TOUCH. PATIENT EXPRESSES DESIRE TO "PASS GAS". MD MADE AWARE AND DOES NOT GIVE NEW ORDER R/T PATIENT'S NPO STATUS. PATIENT VERBALIZES UNDERSTANDING. PATIENT ENCOURAGED TO USE INCENTIVE SPIROMETER. SCDS IN PLACE. SAFETY MEASURES IN PLACE. CALL LIGHT WITHIN REACH.
--- NOTE | 2023-11-01 21:06 | NUR ---
PATIENT IN BED C/O SOME DISCOMFORT AND ATTEMPTING TO GET IN A MORE COMFORTABLE POSITION IN BED. DOES NOT REQUEST ASSISTANCE AT THIS TIME. REMINDED TO USE INCENTIVE SPIROMETER DURING WAKING HOURS. MAINTENANCE FLUIDS CONTINUE, SAFETY MEASURES IN PLACE. CALL LIGHT WITHIN REACH.
[2023-11-02] VITALS (28 sets, daily range): BP systolic 132–175; BP diastolic 93–122
--- NOTE | 2023-11-02 | NUR ---
PATIENT RESTING IN BED WITH EYES CLOSED BUT EASILY AROUSED. RESPIRATIONS EVEN AND UNLABORED ON O2 @ 1.5 L/MIN. PATIENT STATES "I AM ABOUT TO COUGH, I NEED PAIN MEDICINE." PATIENT ABLE TO BRACE ABDOMEN BY USING PILLOW FOR CONFORT WHEN COUGHING. MEDICATED FOR PAIN PER MD ORDER AND PATIENT ALSO REPOSITIONED HIMSELF FOR COMFORT. BOTH PORTIA DRAINS EMPTIED OF CLEAR BLOODY DRAINAGE. AGUILA CATHETER DRAINING CLEAR LUX URINE. ABDOMEN FIRM AND DISTENDED. DRESSING TO ABDOMEN CLEAN, DRY AND INTACT. PATIENT TALKATIVE DURING CARE AND EXPRESSED GRATITUDE FOR CARE PROVIDED BY STAFF. NO FURTHER CONCERNS VOICED AT THIS TIME. SAFET MEASURES IN PLACE. CALL LIGHT WITHIN REACH.
--- NOTE | 2023-11-02 01:27 | NUR ---
PATIENT ASLEEP IN BED AT THIS TIME. NO SIGNS OF DISTRESS NOTED. IV MAINTENANCE FLUIDS CONTINUE. CALL LIGHT WITHIN REACH.
--- NOTE | 2023-11-02 02:58 | NUR ---
PATIENT ASLEEP IN BED AT THIS TIME. EASILY AROUSED DURING ROUNDS. PATIENT AWAKENED AND STATES "I CAN ONLY SLEEP FOR A LITTLE WHILE THEN I WAKE UP". PATIENT CONTINUES TO MAKE ATTEMPTS TO MAKE SELF COMFORTABLE IN BED. DENIES PAIN AT THIS TIME. CONTINUES ON O2@ 1.5 LPM VIA NC R/T DESATURATION BELOW 90% WHEN O2 REMOVED. NPO STATUS MAINTAINED. CALL LIGHT WITHIN REACH.
--- NOTE | 2023-11-02 04:15 | NUR ---
PATIENT AWAKE IN BED AT THIS TIME. REPIRTIONS EVEN AND UNLABORED ON O2 VIA NC. DENIES PAIN AT THIS TIME. DRAINS EMPTIED. SAFETY MEASURES IN PLACE. CALL LIGHT WITHIN REACH. PATIENT USED INCENTIVE SPIROMETER WELL.
[2023-11-02 04:54] LABS: HEMATOCRIT 35.3 % (39.0-50.0); MEAN CELL VOLUME 87.6 fL CALC (80.0-100.0); MEAN CORPUSCULAR HGB 29.8 pG CALC (26.0-32.0); RED BLOOD COUNT 4.03 mill/uL (4.70-6.10); RED CELL DISTRI WIDTH 14.6 % (11.5-15.5)
[2023-11-02 05:10] LABS: ALBUMIN 2.8 g/dL (3.2-5.0); BILIRUBIN, TOTAL 0.7 mg/dL (0.2-1.3); CREATININE 0.9 mg/dL (0.7-1.3); MAGNESIUM 2.1 mg/dL (1.6-2.3); POTASSIUM 3.6 mmol/l (3.5-5.1); TOTAL PROTEIN 5.6 g/dL (6.3-8.2)
--- NOTE | 2023-11-02 08:00 | NUR ---
REPORT RECEIVED FROM NIGHT NURSE. AXO X 4. SINUS TACH ON TELE, S1S2. LUNG SOUNDS CLEAR. NO SOB ON 1L O2. ABDOMEN FIRM AND DISTENDED. NO FLATUS. DRESSING CDI. DRAINS COMPRESSED. ALL NEEDS MET. CALL LIGHT IN REACH. VSS.
--- NOTE | 2023-11-02 08:35 | NUR ---
PATIENT GOT UP TO CHAIR WITH MINIMAL ASSIST. SPOUSE AT BEDSIDE. NO NEEDS AT THIS TIME. CALL LIGHT IN REACH. VSS.
--- NOTE | 2023-11-02 10:15 | NUR ---
PATIENT LAYING IN BED. CATHETER REMOVED. DRESSING CHANGE COMPLETED. SMALL RED DRAINAGE NOTED ON INCISION. NO REDNESSS OR SWELLING NEAR INCISION. NOTED NO DRAINAGE OR REDNESS FOR PORTIA DRAINS. PATIENT TOLERATED WELL. CALL LIGHT IN REACH. VSS.
--- NOTE | 2023-11-02 12:00 | NUR ---
PATEINT RESTING IN BED WITH EYES CLOSED. SPOUSE AT BEDSIDE. ALL NEEDS MET. CALL LIGHT IN REACH.
--- NOTE | 2023-11-02 14:00 | NUR ---
PATIENT LAYING IN BED SLEEPING. SPOUSE AT BEDSIDE. CALL LIGHT IN REACH. VSS,
--- NOTE | 2023-11-02 16:00 | NUR ---
PATIENT AWAKE IN BED LAYING DOWN. EXPRESSES DISCOMFORT STATING HE "FEELS BLOATED." FAMILY AT BEDSIDE. CALL LIGHT IN REACH. VSS.
--- NOTE | 2023-11-02 18:00 | NUR ---
PATIENT LAYING IN BED ASLEEP. SPOUSE AT BEDSIDE. CALL LIGHT IN REACH. VSS.
--- NOTE | 2023-11-02 19:37 | NUR ---
BEDSIDE REPORT RECEIVED FROM OFF GOING NURSE. PATIENT AWAKE IN BED AT THIS TIME WITH SPOUSE AT BEDSIDE. RESPIRATIOSN EVEN AND UNLABORED ON O2@ 1.5 L/MIN VIA NC. DENIES PAIN. USING INCENTIVE SPIROMETER. PATIENT STATES, "I FEEL WIPED OUT". STATES PATIENT HAS BEEN RESTING A LOT TODAY. IV MAINTENANCE FLUIDS IN PLACE. [address]IA [address]AIN IN PLACE. CALL LIGHT WITHIN REACH.
[2023-11-02] MEDS ORDERED: SIMETHICONE 20 MG/0.3 ML PO PRN (19:45)
[2023-11-02] MEDS ORDERED: SIMETHICONE 20 MG/0.3 ML PO ONE (21:19)
--- NOTE | 2023-11-02 21:35 | NUR ---
PATIENT AWAKE IN BED AT THIS TIME. DENIES PAIN. DRAINS EMPTIED. COMMODE PLACED AT BEDSIDE. PO FLUIDS AND PERSONAL BELONGINGS WITHIN REACH. IV FLUIDS CONTINUE. NO CONCERNS VOICED. CALL LIGHT WITHIN REACH.
[2023-11-03] VITALS (26 sets, daily range): BP systolic 139–173; BP diastolic 86–113
--- NOTE | 2023-11-03 00:48 | NUR ---
PATIENT UP TO RECLINER CHAIR WHILE BED LINEN WAS BEING CHANGED. PATIENT ALSO USED BEDSIDE COMMODE. CONTINUES TO DENY PAIN BUT EXHIBITS FACIAL GRIMACING. ASSISTED BACK TO BED. SAFETY MEASURES IN PLACE.
--- NOTE | 2023-11-03 05:29 | NUR ---
PATIENT UP TO BEDSIDE COMMODE. CONTINUES TO HAVE LOOSE STOOLS AND PASSING GAS WELL. MEDICATED FOR PAIN WITH EFFECTIVE RESULTS. PATIENT SINUS TACH ON CLAY MINER RUNNING IN LOW 100s. DRAINS EMPTIED. PORTIA DRAIN #1 HAS CLEAR LUX DRAINAGE AND PORTIA DRAIN #2 HAS BLOOD-TINGED DRAINAGE. IV FLUIDS CONTINUE. SAFETY MEASURE IN PLACE.
--- NOTE | 2023-11-03 07:56 | NUR ---
PATIENT SITTING UP IN BED. ASSESSMENT COMPLETED (SEE INTERVENTIONS). ALERT AND ORIENTED X 4. LUNGS CLEAR TO ASCULTATION. BREATHING EVEN AND UNLABORED ON 1.5L VIA NC. PATIENT DENIES VOMITING, BUT FEELS NAUSEOUS WITH LIQUIDS. LAST RECTAL BM 11/02. ABDOMEN FIRM AND DISTENDED. DRESSING CDI. 40 mL OF LUX DRAINAGE NOTED IN PORTIA 1. TEMP 101.2, MEDICATED ACCORDING TO EMAR. SAFETY MEASURES IN PLACE INCLUDING BED IN LOW POSITION AND CALL LIGHT RESTING NEXT TO R HAND. NO APPARENT DISTRESS NOTED. WILL CONTINUE WITH PLAN OF CARE.
--- NOTE | 2023-11-03 08:05 | NUR ---
PATIENT STATES HE IS PASSING GAS RECTALLY. NO GAS NOTED IN OSTOMY BAG.
[2023-11-03 08:06] LABS: ALBUMIN 3.1 g/dL (3.2-5.0); BILIRUBIN, TOTAL 0.7 mg/dL (0.2-1.3); CREATININE 0.7 mg/dL (0.7-1.3); POTASSIUM 3.6 mmol/l (3.5-5.1); TOTAL PROTEIN 5.9 g/dL (6.3-8.2)
[2023-11-03 08:08] LABS: BASO% 0.2 % (0-3); EOS% 1.5 % (0-8); HEMATOCRIT 36.1 % (39.0-50.0); HEMOGLOBIN 12.3 g/dl (14.0-18.0); IMMATURE GRANULOCYTES 2.4 % (0.0-5.0); LYMPH% 17.3 % (15-41); MEAN CELL VOLUME 87.6 fL CALC (80.0-100.0); MEAN CORPUSCULAR HGB 29.9 pG CALC (26.0-32.0); MEAN CORPUSCULAR HGB CONC 34.1 g/dL CAL (32.0-36.0); MONO% 10.6 % (2-13); NEUT# 10.53 thou/uL (1.82-7.42); RED BLOOD COUNT 4.12 mill/uL (4.70-6.10); RED CELL DISTRI WIDTH 14.6 % (11.5-15.5)
--- NOTE | 2023-11-03 10:28 | NUR ---
PATIENT LYING IN BED. AT BEDSIDE. DENIES CONERNS AT THIS TIME. VSS. WILL CONTINUE WITH PLAN OF CARE.
--- NOTE | 2023-11-03 12:01 | NUR ---
PATIENT UP TO CHAIR FOR BATH.
--- NOTE | 2023-11-03 14:25 | NUR ---
PATIENT BACK FROM 2V CXR. ST ON THE MONITOR. NO APPARENT DISTRESS NOTED. WILL CONTINUE WITH PLAN OF CARE.
--- NOTE | 2023-11-03 16:11 | NUR ---
PATIENT APPEARS TO BE RESTING WITH EYES CLOSED. VITAL SIGNS STABLE. NO APPARENT DISTRESS NOTED. WILL CONTINUE WITH PLAN OF CARE.
--- NOTE | 2023-11-03 18:11 | NUR ---
PATIENT UP TO THE SIDE OF THE BED FOR DINNER. FAMILY MEMBERS AT BEDSIDE. DENIES ISSUES OR CONCERNS AT THIS TIME. WILL CONTINUE WITH PLAN OF CARE.
--- NOTE | 2023-11-03 19:00 | NUR ---
REPORT RECEIVED FROM RECENT ASSIGNED NURSE. PT IS CURRENTLY WITH FAMILY AT HIS BEDSIDE. PT IS ABLE TO WALK TO BEDSIDE COMMODE. PT'S REQUESTED URINALYSIS AFTER AGUILA D/C. PROVIDER MADE AWARE. PT IS AOX4. CALL LIGHT IS AT BEDSIDE.
--- NOTE | 2023-11-03 21:30 | NUR ---
PT IS RESTING AT THIS TIME.
--- NOTE | 2023-11-03 23:00 | NUR ---
PT IS MEDICATED X DISCOMFORT PORTIA DRAINED EMPTIED OUT DRAIN 1 LET OUT 90ML OY YELLOW FLUID. DRAIN 2 LET OUT 10ML OF RED DRAINAGE. PATIENTS OSTOMY EMPTIED AND 10ML OF LIQUID EMPTIED. CALL LIGHT IS WITHIN REACH.
[2023-11-04] VITALS (76 sets, daily range): BP systolic 123–173; BP diastolic 79–116
--- NOTE | 2023-11-04 00:15 | NUR ---
PATIENT MEDICATED AND 90 ML OF YELLOW FLUID DRAINED FROM DRAIN 1. PATIENT IS IN BED CALL LIGHT IS WITHIN REACH.
--- NOTE | 2023-11-04 02:08 | NUR ---
PT IS ASLEEP CALL LIGHT IS WITHIN REACH.
--- NOTE | 2023-11-04 04:37 | NUR ---
LABS ARE CURRENTLY BEING DRAWN AT THIS TIME. PATIENT TOLERATED WELL. CALL LIGHT IS WITHIN REACH.
[2023-11-04 04:58] LABS: HEMATOCRIT 33.7 % (39.0-50.0); HEMOGLOBIN 11.4 g/dl (14.0-18.0); MEAN CELL VOLUME 87.1 fL CALC (80.0-100.0); MEAN CORPUSCULAR HGB 29.5 pG CALC (26.0-32.0); MEAN CORPUSCULAR HGB CONC 33.8 g/dL CAL (32.0-36.0); RED BLOOD COUNT 3.87 mill/uL (4.70-6.10); RED CELL DISTRI WIDTH 14.5 % (11.5-15.5)
[2023-11-04 05:19] LABS: ALBUMIN 2.8 g/dL (3.2-5.0); BILIRUBIN, TOTAL 0.6 mg/dL (0.2-1.3); CREATININE 0.7 mg/dL (0.7-1.3); MAGNESIUM 1.7 mg/dL (1.6-2.3); POTASSIUM 3.2 mmol/l (3.5-5.1); TOTAL PROTEIN 5.5 g/dL (6.3-8.2)
--- NOTE | 2023-11-04 06:28 | NUR ---
DRESSING CHANGED PERFORMED, PATIENT MEDICATED. CALL LIGHT IS WITHIN REACH.
[2023-11-04 06:30] LABS: URINE BILIRUBIN - DIPSTICK Negative (NEGATIVE); URINE BLOOD DIPSTICK Small (NEGATIVE); URINE GLUCOSE - DIPSTICK Negative (NEGATIVE); URINE KETONE 15 mg/dL (NEGATIVE); URINE NITRITE - DIPSTICK Negative (Negative); URINE PH 8.5 (4.5-8.0); URINE PROTEIN - DIPSTICK Negative (NEG-TRACE); URINE UROBILINOGEN - DIPSTICK 0.2 E.U./dL (0.2)
[2023-11-04 06:34] LABS: URINE COLOR Yellow; URINE LEUK ESTERASE Negative (NEGATIVE)
[2023-11-04 06:36] LABS: URINE BACTERIA FEW hpf; URINE EPITHELIAL CELLS FEW EPI/hpf (0-FEW); URINE WBC 0-2 WBC/hpf (0-5)
--- NOTE | 2023-11-04 07:00 | NUR ---
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
--- NOTE | 2023-11-04 08:00 | NUR ---
awake in recliner; offers no complaints; admits to no pain; spouse at bedside; call light within reach; will continue to monitor
[2023-11-04] MEDS ORDERED: LOSARTAN Potassium 50 MG/TAB PO SCH (09:00)
[2023-11-04] MEDS ORDERED: METOPROLOL TARTRATE 25 MG/TAB PO SCH (09:00)
--- NOTE | 2023-11-04 10:02 | NUR ---
awake in recliner; offers no complaints; spouse at bedside; st on monitor; call light within reach; will continue to monitor
--- NOTE | 2023-11-04 12:05 | NUR ---
Dr Wood called per this proposal manager writer in regards to scheduled labetolol and metoprolol; labetalol to be changed to prn
--- NOTE | 2023-11-04 12:15 | NUR ---
pt awake in bed; offers no complaints; iv intact and patent; no redness or edema noted at site; st on monitor; leland drains emptied; dressing to abd and leland sites changed; serosang drainage noted to mid incision; call light within reach; will continue to monitor
[2023-11-04] MEDS ORDERED: LABETALOL HCL 20 MG/ 4 ML CARTRG IV PRN (13:35)
--- NOTE | 2023-11-04 13:35 | NUR ---
Dr Reeder present at bedside to assess pt and discuss plan of care
[2023-11-04] MEDS ORDERED: oxyCODONE 5MG/ ACETAMINOPHEN 325MG TAB PO PRN (14:00)
--- NOTE | 2023-11-04 14:11 | NUR ---
leland removed from left abd; pt tolerated well; dressing applied; will continue to monitor
--- NOTE | 2023-11-04 14:25 | NUR ---
pt ambulated around ICU accompanied by this typewriter operator automatic; gait steady; no sob/dizziness with activity; returned to room; monitoring attachments intact
--- NOTE | 2023-11-04 16:08 | NUR ---
resting in bed on left side; easily arousable; offers no complaints; iv intact; spouse at bedside; call light within reach; will continue to monitor
--- NOTE | 2023-11-04 17:54 | NUR ---
pt awake in recliner eating dinner; offers no complaints; spouse at bedside; st on monitor; deny needs; call light within reach
--- NOTE | 2023-11-04 21:00 | NUR ---
PATIENT MEDUCATED, NOTHING TO BE DRAINED AT THIS TIME. THERE ARE NO REPORTS OF PAIN. PT IS INDEPENDENT. CALL LIGHT IS WITHIN REACH.
[2023-11-05] VITALS (35 sets, daily range): BP systolic 118–166; BP diastolic 71–110
--- NOTE | 2023-11-05 02:47 | NUR ---
PATIENT IS ASLEEP, CALL LIGHT IS IN REACH.
--- NOTE | 2023-11-05 03:41 | NUR ---
PATIENT IS ASLEEP, CALL LIGHT IS WITHIN REACH.
[2023-11-05 04:43] LABS: HEMATOCRIT 33.7 % (39.0-50.0); HEMOGLOBIN 11.8 g/dl (14.0-18.0); MEAN CELL VOLUME 86.4 fL CALC (80.0-100.0); MEAN CORPUSCULAR HGB 30.3 pG CALC (26.0-32.0); RED BLOOD COUNT 3.9 mill/uL (4.70-6.10); RED CELL DISTRI WIDTH 14.6 % (11.5-15.5)
[2023-11-05 05:02] LABS: BILIRUBIN, TOTAL 0.6 mg/dL (0.2-1.3); CREATININE 0.8 mg/dL (0.7-1.3); MAGNESIUM 1.7 mg/dL (1.6-2.3); POTASSIUM 3.4 mmol/l (3.5-5.1); TOTAL PROTEIN 5.8 g/dL (6.3-8.2)
--- NOTE | 2023-11-05 06:30 | NUR ---
PATIENT MEDICATED. DRAIN DRAINED. PT IS NOW IN BED RESTING. CALL LIGHT IS AT BEDSIDE.
--- NOTE | 2023-11-05 07:50 | NUR ---
pt awake in bed; very emotional/tearful; no apparent distress noted; assessment completed at this time; pt alert and oriented; denies pain; no n/v noted; resp even and unlabored; lungs clear; skin color wnl; ra; hr reg; strong pulses; no edema noted; st on monitor; abd distended/soft with bs present; pt admits to bm all through the night, causing emotional distress; ostomy noted to right abd with liq brown contect noted; pt admits to voiding without complication; urinal at bedside; #20 to lw patent with ivf infusing without complication; no redness or edema noted at site; leland intact to right abd with serous fluid noted; abd dressing cdi; plan of care/ meds explained; call light within reach; will continue to monitor
--- NOTE | 2023-11-05 08:05 | NUR ---
awake sitting at the side of the bed for breakfast; spouse at bedside; st on monitor; call light within reach; will continue to monitor
[2023-11-05] MEDS ORDERED: METOPROLOL TARTRATE 50 MG/TAB PO SCH (09:00)
--- NOTE | 2023-11-05 09:45 | NUR ---
Dr Portillo present at bedside to assess pt and discuss plan of care
[2023-11-05] MEDS ORDERED: ONDANSETRON 4 MG/TAB ODT PO PRN (09:55)
--- NOTE | 2023-11-05 10:05 | NUR ---
pt awake sitting at the side of the bed; offers no complaints; iv intact; call light within reach; will continue to monitor
[2023-11-05] MEDS ORDERED: POTASSIUM CHLORIDE 20 MEQ/TAB PO SCH (10:30)
--- NOTE | 2023-11-05 11:00 | NUR ---
pt ambulatory with this investigative writer; no distress noted; able to walk to MS without sob; will continue to monitor
--- NOTE | 2023-11-05 12:00 | NUR ---
awake sitting at the side of the bed; offers no complaints; plan of care explained; will continue to monitor
--- NOTE | 2023-11-05 12:40 | NUR ---
Dr Reeder present at bedside to assess pt and discuss plan of care; LELAND to be removed; dressing changed to lower abd incision and left leland site; call light within reach; will continue to monitor
[2023-11-05] MEDS ORDERED: VANCOMYCIN HCL 500 MG/VIAL IV SCH (12:47)
[2023-11-05] MEDS ORDERED: VANCOMYCIN HCL 1 GM in SODIUM CHLORIDE 0.9% 250 ML IV SCH (13:30)
--- NOTE | 2023-11-05 13:30 | NUR ---
leland to right pulled as per MD orders; dressing placed; pt educated to notify staff when drsg becomes saturated/need to be changed
--- NOTE | 2023-11-05 13:50 | NUR ---
S: KEVIN TAYLOR is a 48 M who presents with DIVERTICULITIS AND PNEUMONIA. He has a history of HYPERTENSION AND GERD. All medications in patient's chart were reviewed. O: VS: BP <138/97>, P<97>, RR<19>,T<98.4> W <91kg>, HT<61 IN>, Scr=<0.8>,CrCl= <128ml/min> A: Blood culture SHOWS NO GROWTH. P: Patient is on zosyn 4.5gm iv q6h. Vancomycin ordered for pharmacy to dose. Start Vancomycin 1g IV Q8H. Vancomycin trough is drawn before the 4th dose on 11/06/23 @1300. Vancomycin goal trough is between 15-20 mcg/ml. Pharmacy will follow and or advise on antibiotics use as needed.
--- NOTE | 2023-11-05 14:27 | NUR ---
pt awake in bed washing self up; offers no complaints; iv intact; call light within reach; will continue to monitor
--- NOTE | 2023-11-05 14:34 | NUR ---
report called to Jane Parker RN
--- NOTE | 2023-11-05 15:05 | NUR ---
pt ambulatory to [facility] 263; tele 01 intact; spouse at bedside; all pt belongings/ meds sent over; pt tolerated acitivity well; bedside update provided to Jane Parker RN
--- NOTE | 2023-11-05 15:27 | NUR ---
PATIENT IS A TRANSFER FROM ICU BED 8 TO SC ROOM 263. PATIENT AMBULATED TO ROOM. FAMILY AT BEDSIDE. PATIENT A&OX4 AND ABLE TO MAKE NEEDS KNOWN. PATIENT HAS A MIDLINE INCISION WITH DRESSING, COLOSTOMY PATENT AND DRAINING. PATIENT ABDOMEN IS DISTEND BUT SOFT, RESPIRATIONS EVEN AND UNLABORED, PEDAL PULSES PRESENT. PATIENT OREINTED TO CALL LIGHT, ROOM AND SURROUNDINGS. PATIENT DENIES ANY NEEDS AT THIS TIME. BED AT LOWEST LEVEL, TOP 2 SIDERAILS UP, AND CALL LIGHT WITHIN REACH. WILL CONTINUE TO MONITOR.
--- NOTE | 2023-11-05 20:00 | NUR ---
BED SIDE SHIFT REPORT COMPLETED. SITTING ON SIDE OF BED VISITING WITH FAMILY. DENIES NEEDS AT CURRENT TIME. CALL LIGHT IN REACH.
[2023-11-06] VITALS (7 sets, daily range): BP systolic 128–155; BP diastolic 75–101
--- NOTE | 2023-11-06 | NUR ---
MEDICATED WITH IV DILAUDID FOR C/O PAIN IN ABDOMEN. AMBULATORY WITH STEADY GAIT. DRESSING TO MIDLINE INCISION CLEAN DRY INTACT. IS ENCOURAGED WHEN AWAKE. CALL LIGHT IN REACH.
--- NOTE | 2023-11-06 04:00 | NUR ---
RESTING IN BED. CALL LIGHT IN REACH. NO C/O PAIN OR DISCOMFORT AT PRESENT TIME.
[2023-11-06 04:54] LABS: BASO% 0.3 % (0-3); EOS% 1.8 % (0-8); HEMATOCRIT 32.2 % (39.0-50.0); IMMATURE GRANULOCYTES 4.8 % (0.0-5.0); LYMPH% 18.5 % (15-41); MEAN CELL VOLUME 86.8 fL CALC (80.0-100.0); MEAN CORPUSCULAR HGB 29.6 pG CALC (26.0-32.0); MEAN CORPUSCULAR HGB CONC 34.2 g/dL CAL (32.0-36.0); MONO% 10.2 % (2-13); NEUT# 10.53 thou/uL (1.82-7.42); NEUT% 64.4 % (42-76); RED BLOOD COUNT 3.71 mill/uL (4.70-6.10); RED CELL DISTRI WIDTH 14.7 % (11.5-15.5)
[2023-11-06 05:02] LABS: ALBUMIN 2.9 g/dL (3.2-5.0); BILIRUBIN, TOTAL 0.4 mg/dL (0.2-1.3); CREATININE 0.9 mg/dL (0.7-1.3); MAGNESIUM 1.7 mg/dL (1.6-2.3); POTASSIUM 3.8 mmol/l (3.5-5.1); TOTAL PROTEIN 5.6 g/dL (6.3-8.2)
--- NOTE | 2023-11-06 08:00 | NUR ---
Patient oriented x 3 . Blanca who is a neuro Nurse practioner is at bedside. Ostomy wafer changed. Patient and spouse eduated on how to care for ostomy. Patient was able to return demonstrate how to care for ostomy . Pt had chest x ray done . Comfort and safety measures in place.
[2023-11-06] MEDS ORDERED: DIATRIZOATE MEGLUMINE & SODIUM 30 ML/BTL BTL PO SCH (10:30)
--- NOTE | 2023-11-06 12:06 | NUR ---
Patient finished [address] of Abdomen.Denies any nausea and pain Comfort and safety measures in place. Vital signs stable.
[2023-11-06] MEDS ORDERED: cefTRIAXone SODIUM 2 GM in SODIUM CHLORIDE 0.9% 100 ML IV SCH (13:00)
--- NOTE | 2023-11-06 13:35 | NUR ---
S: KEVIN TAYLOR is a 48 M who presents with diverticulitis with perforation and abscess and pneumonia. All medications in patient's chart were reviewed. O: VS: BP 143/97 mmhg, P 90 bpm, RR 20bpm,T 97.1 F W <91kg>, HT<71in>, Scr=<0.9>,CrCl= <114ml/min> Trough=6 A: Blood culture shows no growth Wound culture shows E. Coli which is sensitive to ceftriaxone P: Patient is on ceftriaxone 2gm IV Q24H and vancomycin 1gm IV Q8H. Vancomycin ordered for pharmacy to dose. increase Vancomycin to 1500mg IV Q8H. Vancomycin trough is drawn before the 4th dose on11/07/23 @1330. Vancomycin goal trough is between <15-20 mcg/ml>. Pharmacy will follow and or advise on antibiotics use as needed.
[2023-11-06] MEDS ORDERED: VANCOMYCIN HCL 1,500 MG in SODIUM CHLORIDE 0.9% 470 ML IV SCH (14:00)
--- NOTE | 2023-11-06 17:15 | NUR ---
Patient in hallway ambulating . Patient had CT scan of abd/pelvis. New 20G IV placed to right F/A. Patient medictaed x1 with percocet for abd pain. Vital signs stable. Comfort and safety measures in place. Vanco trough drawn and vanco adminsitered as ordered. Comfort and safety measures in place.
--- NOTE | 2023-11-06 20:00 | NUR ---
BEDSIDE SHIFT REPORT COMPLETED. HAD QUESTIONS ABOUT TWO TEST TODAY. REVIEWED RESULTS OF CT OF ABDOMEN AND CXR WITH PATIENT AND . PATIENT IS AMBULATING IN ROOM WITH STEADY GAIT. COMPLAINS OF BURNING TYPE PAIN NEAR MIDLINE INCISION. DRESSING CLEAN DRY AND INTACT.
[2023-11-07] VITALS (10 sets, daily range): BP systolic 141–161; BP diastolic 88–99
--- NOTE | 2023-11-07 | NUR ---
MEDICATED WITH PRN DILAUDID. STATES TAKES PAIN AWAY BUT DOESNT LAST LONG. GAVE PRN PERCOCET WITH GOOD RESULTS. C/O PAIN BEING A BURNING SENSATION NEAR THE INCISION LINE.
--- NOTE | 2023-11-07 04:24 | NUR ---
RESTING IN BED. NO C/O PAIN AT CURRENT TIME. CALL LIGHT IN REACH. DRESSING TO MIDLINE INCISION CLEAN DRY INTACT.
[2023-11-07 04:49] LABS: BASO% 0.4 % (0-3); EOS% 2.2 % (0-8); HEMATOCRIT 31.8 % (39.0-50.0); IMMATURE GRANULOCYTES 3.6 % (0.0-5.0); LYMPH% 21.9 % (15-41); MEAN CELL VOLUME 86.4 fL CALC (80.0-100.0); MEAN CORPUSCULAR HGB 29.9 pG CALC (26.0-32.0); MEAN CORPUSCULAR HGB CONC 34.6 g/dL CAL (32.0-36.0); MONO% 8.9 % (2-13); NEUT# 8.93 thou/uL (1.82-7.42); RED BLOOD COUNT 3.68 mill/uL (4.70-6.10); RED CELL DISTRI WIDTH 14.8 % (11.5-15.5)
[2023-11-07 05:21] LABS: ALBUMIN 2.9 g/dL (3.2-5.0); CREATININE 0.7 mg/dL (0.7-1.3); MAGNESIUM 1.7 mg/dL (1.6-2.3); TOTAL PROTEIN 5.6 g/dL (6.3-8.2)
[2023-11-07 05:22] LABS: BILIRUBIN, TOTAL 0.2 mg/dL (0.2-1.3)
--- NOTE | 2023-11-07 06:00 | NUR ---
MEDICATED WITH PRN PERCOCER PER PATIENTS REQUEST.
--- NOTE | 2023-11-07 08:22 | NUR ---
PATIENT A/O X3; ROOM AIR; BREATHING UNLABORED AND EVEN; DENIED ANY PAIN; DENIED ANY N/D/V AT THIS TIME; IV SITE ON RAC CLEAN AND INTACT SALINE LOCKED AND FLUSHED WITH NO ISSUES; MEDICATION REVIEWED;TOLERATED MEDICATION ADM; NO S/S OF DISTRESS AT THIS TIME; CALL LGHT WITHIN REACH,VERBALIZED UNDERSTANDING ON HOW TO USE, PERSONAL ITEMS WITHIN REACH,BED IN LWOWEST POSTION; BP ELEVATED ADM MEDICATION AND WILL RECHECK IN ONE HOUR
--- NOTE | 2023-11-07 09:42 | NUR ---
PER DR. AL REMOVE EVERY OTHER STAPLE TODAY ON MIDLINE
--- NOTE | 2023-11-07 10:53 | NUR ---
Removed 9 ness from patients midline incision; 7 ness left still intact. Midline incision clean and intact. No drainage noted. No signs of infection. Patient tolerated removal well. No complaints noted.
--- NOTE | 2023-11-07 12:32 | NUR ---
PATIENT A/O X3; ROOMA IR; BREATHING UNLABORED AND EVEN; DENIED ANY PAIN; DENIED ANY N/D/V AT THIS TIME; TELE LEADS ARE ATTACHED AND WORKING WITH NO ISSUES; MIDLINE AREA CLEAN AND INTACT NO S/S OF INFECTION; IV SITE ON RAC CLEAN AND INTACT RUNNING WITH ANTIBODICS; MEDICATION REVIWED; PATIENT SITTING SEMI LUND IN BED; CALL LIGHT WITHIN REACH,VERBALIZED UNDERSTANDING ON HOW TO USE, PERONAL ITEMS WITHIN REACH, BED IN LOWEST POSTION; NO COMPLAINTS AT THIS TIME'
--- NOTE | 2023-11-07 14:16 | NUR ---
S: KEVIN TAYLOR is a 48 M who presents with diverticulitis of intestine with perforation and abscess and pneumonia. He has a history of hypertension and sciatica. All medications in patient's chart were reviewed. O: VS: BP 145/94 mmHg, P 81, RR 20,T 97 F W 91 kg, HT 180 cm, Scr= 0.7,CrCl= 147 ml/min Vancomycin Trough: 11 A: Wound culture shows Escherichia coli which is sensitive to ceftriaxone. P: Patient is on ceftriaxone 2 g IV Q24H and metronidazole 500 mg IV Q8H. Vancomycin ordered for pharmacy to dose. Continue Vancomycin 1500 mg IV Q8H. Vancomycin trough is drawn before the 4th dose on 11/08/23 at 1330. Vancomycin goal trough is between 15-20 mcg/ml. Pharmacy will follow and or advise on antibiotics use as needed.
--- NOTE | 2023-11-07 14:53 | NUR ---
PT HEADING TO US
--- NOTE | 2023-11-07 16:00 | NUR ---
Pt A&Ox3; Sitting upright on side of the bed. Breathing unlabored and even on room air. IV site clean and intact on SL. Denies any pain, as well as N/D/V. Call light within reach, pt verbalized understanding of use. Bed in lowest position. No complaints at this time.
--- NOTE | 2023-11-07 16:20 | NUR ---
pt back from us
--- NOTE | 2023-11-07 19:58 | NUR ---
PT HAD IV ABX DUE FROM PREVIOUS SHIFT, DAYSHIFT NURSE REPORTS WERE UNABLE TO ADMINISTER DUE TO NO IV ACCESS. NEW IV ACCESS STARTED AND IV ABX ADMINSITERED. [facility] INFORMED SPOKE WITH CARLOS LUDWIG OF ABX AND LABS ORDERED.
[2023-11-07] MEDS ORDERED: VANCOMYCIN HCL 1,500 MG in SODIUM CHLORIDE 0.9% 470 ML IV SCH (20:00)
--- NOTE | 2023-11-07 20:00 | NUR ---
REPORT RECIEVED FROM [facility] NURSE. PT RESTING IN BED WATCHING TELEVISION AT THIS TIME. PT IS A&O X4, AND ABLE TO MAKE NEEDS KNOWN. PT COMPLAINS OF PAIN IN ABDOMEN, WILL FOLLOW UP PER EMAR. INCENTIVE SPIROMETER AT BEDSIDE, PT EDUCATED ON USE OF DEVICE. COLOSTOMY NOTED TO ABDOMEN, PRODUCING BROWN LOOSE STOOL. PT STATES THAT HE HAD A WATERY BM WHEN ASSISTED TO BATHROOM. MIDLINE INCISION NOTED TO ABDOMEN, WOUND EDGES CLEAN, AND WELL APPROXIMATED, WOUND CLOSED WITH ZANDER. BOWEL SOUNDS ACTIVE ON THE RIGHT SIDE, HYPOACTIVE ON THE LEFT SIDE. ABDOMEN IS DISTENDED AN1D SOFT. LOWER LOBES DIMINISHED UPON AUSCULTATION. PERIPHERAL PULSES STRONG. PT EDUCATED ON MEDICATION SCHEDULE AND POC. CALL LIGHT IN REACH, AND SAFETY PRECAUTIONS IN PLACE. PT REMAINS ON TELE AT THIS TIME.
[2023-11-08] VITALS (7 sets, daily range): BP systolic 139–160; BP diastolic 88–99
--- NOTE | 2023-11-08 | NUR ---
PT RESTING IN BED WITH EYES CLOSED, RESPIRATIONS EVEN AND UNLABORED, EASILY AROUSABLE. NO S&S OF DISTRESS NOTED AT THIS TIME. CALL LIGHT IN REACH, AND SAFETY PRECAUTIONS IN PLACE.
--- NOTE | 2023-11-08 04:10 | NUR ---
PT RESTING IN BED WATCHING TELEVISION. PT MEDICATED PER EMAR AT THIS TIME. PT DENIES ANY FURTHER NEEDS. PT DOES NOT SHOW ANY S&S OF DISTRESS AT THIS TIME. CALL LIGHT IN REACH, AND SAFETY PRECAUTIONS IN PLACE.
[2023-11-08 05:03] LABS: BASO% 0.4 % (0-3); EOS% 2.3 % (0-8); HEMOGLOBIN 11.5 g/dl (14.0-18.0); IMMATURE GRANULOCYTES 2.7 % (0.0-5.0); MEAN CELL VOLUME 86.4 fL CALC (80.0-100.0); MEAN CORPUSCULAR HGB 30.1 pG CALC (26.0-32.0); MEAN CORPUSCULAR HGB CONC 34.8 g/dL CAL (32.0-36.0); MONO% 8.4 % (2-13); NEUT# 9.52 thou/uL (1.82-7.42); NEUT% 68.2 % (42-76); RED BLOOD COUNT 3.82 mill/uL (4.70-6.10); RED CELL DISTRI WIDTH 14.8 % (11.5-15.5)
[2023-11-08 05:23] LABS: ALBUMIN 3.1 g/dL (3.2-5.0); BILIRUBIN, TOTAL 0.2 mg/dL (0.2-1.3); CREATININE 0.8 mg/dL (0.7-1.3); MAGNESIUM 1.7 mg/dL (1.6-2.3); POTASSIUM 4.1 mmol/l (3.5-5.1)
--- NOTE | 2023-11-08 07:23 | NUR ---
PT IS AOX4, LUNGS ARE CLEAR THROUGHOUT, PT IS ABLE TO REACH BETWEEN [phone] ON IS DID 2100 THIS MORNING, BOWEL SOUNDS IN LEFT UPPER QUAD IS HYPOSCTIVE, THE RIGHT UPPER IS ACTIVE, LEFT AND RIGHT LOWER BOWEL SOUNDS ARE ACTIVE, MIDLINE INCISION SITE IS CLEAN, DRY, INTACT WITH ZANDER PRESENT, NO REDNESS, NO SWELLING NOTES, COLOSTOMY BAG WITH TRACE AMOUND OF BROWN STOOL PRESENT, PEDAL PULSES ARE PALPABLE TO TOUCH, PT REPORTS PAIN MORE OF A "DISCOMFORT" AT THIS TIME.
--- NOTE | 2023-11-08 08:42 | NUR ---
MD AT BEDSIDE DISCUSSING PLAN OF CARE WITH PT AT THIS TIME.
[2023-11-08] MEDS ORDERED: LOPRESSOR 550 MG/TAB PO (09:17)
[2023-11-08] MEDS ORDERED: LEVOFLOXACIN500MG PO (09:19)
[2023-11-08] MEDS ORDERED: METRONIDAZOLE500 MG PO (09:21)
--- NOTE | 2023-11-08 14:53 | NUR ---
REVIEWED DISCHARGE INSTRUCTIONS WO\ITH PT. PT WAITING ON RIDE TO GO HOME.
--- NOTE | 2023-11-08 16:51 | NUR ---
PT REPORTING THAT FAMILY IS ON THE WAY.
--- NOTE | 2023-11-08 17:58 | NUR ---
pt left the unit with belongings in hand. iv cd's tele box 01 dc'd and placed at nurses station.
--- NOTE | 2023-11-09 12:44 | NUR ---
Discharge follow up call completed 11/09/23. Pt states he is doing well and taking it slow. Pt got prescribed medication but did not get any pain medication. Referred his request to Case Mgt. for considerativion by provider. Patient has a follow up appointment with surgeon on Tuesday, 11/10. No other needs or concerns verbalized at this time.
== END 2023-11-08 17:56 | disposition home or self-care (01) | DRG 853 ==
LOC: ED 14:16 → ED-I 20:47 → ED 20:58 → MS2 20:58 → ICU 10-31 12:35 → MS2 11-05 15:05
PROVIDERS: Internal Medicine; Nurse Practitioner Family; ADMIT Student in an Organized Health Care Education/Training Program; ATTEND Student in an Organized Health Care Education/Training Program
PROC: 0DBN0ZZ Excision of Sigmoid Colon, Open Approach (ICD-10-PCS; principal; 2023-10-31)
PROC: 0D1H0Z4 Bypass Cecum to Cutaneous, Open Approach (ICD-10-PCS; 2023-10-31)
DX: A41.9 Sepsis, unspecified organism (principal); J18.9 Pneumonia, unspecified organism; K65.1 Peritoneal abscess; K57.20 Diverticulitis of large intestine with perforation and abscess without bleeding; R65.20 Severe sepsis without septic shock; E83.42 Hypomagnesemia; I10 Essential (primary) hypertension; R00.0 Tachycardia, unspecified; K21.9 Gastro-esophageal reflux disease without esophagitis; M54.32 Sciatica, left side; F17.210 Nicotine dependence, cigarettes, uncomplicated; B96.20 Unspecified Escherichia coli [E. coli] as the cause of diseases classified elsewhere; Z98.890 Other specified postprocedural states; Z79.899 Other long term (current) drug therapy; Z20.822 Contact with and (suspected) exposure to COVID-19
CPT/HCPCS: J0131; J1650; J2470; J3370; J3475; Q9967

== ENCOUNTER 2023-11-12 11:05 | Inpatient (IN) | payer OTHER ==
[2023-11-12] VITALS (22 sets, daily range): BP systolic 107–141; BP diastolic 75–92
[~2023-11-12] VITALS: Ht 180.3 cm; Wt 81.6 kg
[~2023-11-12 11:05] MED LIST: AMLODIPINE BESY10 MG PO; AMLODIPINE BESYL5 MG PO; AVALIDE 150-12.1 TAB PO; CIPROFLOXACN500 MG PO; LEVOFLOXACIN500MG PO; LOPRESSOR 550 MG/TAB PO; METRONIDAZOLE500 MG PO; MOTRIN800 MG PO
[2023-11-12] MEDS ORDERED: DIATRIZOATE MEGLUMINE & SODIUM 30 ML/BTL BTL PO ONE (11:35)
[2023-11-12 11:43] LABS: BASO% 0.4 % (0-3); EOS% 0.4 % (0-8); HEMATOCRIT 36.2 % (39.0-50.0); HEMOGLOBIN 12.2 g/dl (14.0-18.0); IMMATURE GRANULOCYTES 0.6 % (0.0-5.0); LYMPH% 11.1 % (15-41); MEAN CELL VOLUME 86.2 fL CALC (80.0-100.0); MEAN CORPUSCULAR HGB CONC 33.7 g/dL CAL (32.0-36.0); MONO% 7.9 % (2-13); NEUT# 10.25 thou/uL (1.82-7.42); NEUT% 79.6 % (42-76); RED BLOOD COUNT 4.2 mill/uL (4.70-6.10); RED CELL DISTRI WIDTH 15.2 % (11.5-15.5)
[2023-11-12 11:54] LABS: POTASSIUM 4.1 mmol/l (3.5-5.1)
[2023-11-12 11:58] LABS: ALBUMIN 4.1 g/dL (3.2-5.0); BILIRUBIN, TOTAL 0.7 mg/dL (0.2-1.3); TOTAL PROTEIN 7.6 g/dL (6.3-8.2)
--- NOTE | 2023-11-12 12:23 | NUR ---
PT BACK FROM CT, NO NEEDS AT THIS TIME.
--- NOTE | 2023-11-12 13:23 | NUR ---
PT RESTING WITH FAMILY AT BEDSIDE.
[2023-11-12 14:40] LABS: URINE BILIRUBIN - DIPSTICK Negative (NEGATIVE); URINE BLOOD DIPSTICK Negative (NEGATIVE); URINE GLUCOSE - DIPSTICK Negative (NEGATIVE); URINE KETONE Negative (NEGATIVE); URINE LEUK ESTERASE Negative (NEGATIVE); URINE NITRITE - DIPSTICK Negative (Negative); URINE PH 5.5 (4.5-8.0); URINE PROTEIN - DIPSTICK Trace mg/dL (NEG-TRACE); URINE SPECIFIC GRAVITY 1.015; URINE UROBILINOGEN - DIPSTICK 0.2 E.U./dL (0.2)
[2023-11-12 14:41] LABS: URINE COLOR Yellow
--- NOTE | 2023-11-12 15:03 | NUR ---
PT PROVIDED SODA PER REQUEST
[2023-11-12] MEDS ORDERED: SODIUM CHLORIDE 0.9% 1,000 ML IV ONE (16:05)
[2023-11-12] MEDS ORDERED: MORPHINE SULFATE 4 MG/ML VIAL IV ONE (16:05)
[2023-11-12] MEDS ORDERED: SODIUM CHLORIDE 0.9% 1,000 ML IV PRN (19:20)
[2023-11-12] MEDS ORDERED: oxyCODONE 5MG/ ACETAMINOPHEN 325MG TAB PO PRN (19:30)
[2023-11-12] MEDS ORDERED: LABETALOL HCL 20 MG/ 4 ML CARTRG IV PRN (19:30)
[2023-11-12] MEDS ORDERED: KETOROLAC TROMETHAMINE 15 MG/ML SDV IV PRN (19:30)
--- NOTE | 2023-11-12 19:45 | NUR ---
PATIENT TO MED SURG BY Susie NORMAN RN. CARE HANDED OVER TO Shirley HOUSER LPN
[2023-11-12] MEDS ORDERED: LIDOCAINE HCL 1% (10MG/ML) 100 MG/10 ML MDV IV SCH (19:47)
--- NOTE | 2023-11-12 19:48 | NUR ---
DR العلي EXPRESSED CONCERN REGARDING PATIENTS ELEVATED TEMPERATURE. RECOMMENDED BLOOD CULTURES AND LACTC ACID. DR AL CONTACTED WITH RECOMENDATIONS, NO NEW ORDERS RECEIVED AT THIS TIME.
--- NOTE | 2023-11-12 20:30 | NUR ---
REPORT RECIEVED FROM ED NURSE. PT TRANSPORTED TO [facility] ROOM 273 VIA WITH ED STAFF X1. PT IS A&O X4, AND ABLE TO MAKE NEEDS KNOWN. PT HAS A COLOSTOMY NOTED TO ABDOMEN, AND WATERY CONTENT IN BAG. DRESSING NOTED TO LOWER ABDOMEN/SUPRAPUBIC AREA. ABDOMEN IS DISTENDED AND FIRM. BOWEL SOUNDS ACTIVE IN THE LUQ, AND THE LLQ. BOWEL SOUNDS ARE HYPOACTIVE IN THE RUQ, AND THE RLQ. LUNGS SOUNDS CLEAR UPON AUSCULTATION. PERIPHERAL PULSES STRONG. PT ABLE TO AMBULATE FROM TO BED INDEPENDENTLY. PT STATES THAT HE HAD A BM TODAY, AND THAT IT WAS WATERY. PT CURRENTLY STATES PAIN OF 4 IN THE ABDOMEN. NO FURTHER COMPLAINTS VOICED FROM THE PT AT THIS TIME. PT EDUCATED ON MEDICATION SCHEDULE AND POC. CALL LIGHT IN REACH, AND SAFETY PRECAUTIONS IN PLACE.
[2023-11-12] MEDS ORDERED: METOPROLOL TARTRATE 50 MG/TAB PO SCH (21:00)
--- NOTE | 2023-11-12 21:45 | NUR ---
DRESSING TO ABDOMEN IS INTACT, BUT SATURATED AT THIS TIME. DRESSING REMOVED, AND CLEANED WITH WOUND CLEANSER. PICTURE OBTAINED, SEE CHART. PACKED WITH DRY FLUFF GAUZE, 4X4 DRY GAUZE PLACED ON TOP, SECURED WITH PAPER TAPE. PER PT REQUEST, COLOSTOMY BAG AND WAFER CHANGED AT THIS TIME. STOMA CARE GIVEN. PT TOLERATED WELL.
[2023-11-13] VITALS (7 sets, daily range): BP systolic 106–123; BP diastolic 67–77
[2023-11-13] MEDS ORDERED: PIPERACILLIN Sodium-Tazobactam 3.375 GM in SODIUM CHLORIDE 0.9% 100 ML IV SCH
--- NOTE | 2023-11-13 00:45 | NUR ---
PT RESTING IN BED WITH EYES CLOSED. RESPIRATIONS EVEN AND UNLABORED, PT IS EASILY AROUSABLE. PT DOES NOT VOICE ANY CONCERNS AT THIS TIME. NO S&S OF DISTRESS NOTED AT THIS TIME. CALL LIGHT IN REACH, AND SAFETY PRECAUTIONS IN PLACE.
--- NOTE | 2023-11-13 05:00 | NUR ---
PT RESTING IN BED WATCHING TELEVISION. STATES THAT HE HAS PAIN IN HIS ABDOMEN, WILL FOLLOW UP PER EMAR. PT ASSISTED TO BATHROOM AT THIS TIME. NO S&S OF DISTRESS NOTED AT THIS TIME. NO FURTHER COMPLAINTS VOICED FROM THE PT AT THIS TIME. CALL LIGHT IN REACH, AND SAFETY PRECAUTIONS IN PLACE.
[2023-11-13 05:41] LABS: BASO% 0.2 % (0-3); EOS% 0.5 % (0-8); HEMATOCRIT 37.6 % (39.0-50.0); HEMOGLOBIN 12.7 g/dl (14.0-18.0); IMMATURE GRANULOCYTES 0.7 % (0.0-5.0); LYMPH% 13.5 % (15-41); MEAN CELL VOLUME 87.4 fL CALC (80.0-100.0); MEAN CORPUSCULAR HGB 29.5 pG CALC (26.0-32.0); MEAN CORPUSCULAR HGB CONC 33.8 g/dL CAL (32.0-36.0); MONO% 4.5 % (2-13); NEUT# 8.23 thou/uL (1.82-7.42); NEUT% 80.6 % (42-76); RED BLOOD COUNT 4.3 mill/uL (4.70-6.10); RED CELL DISTRI WIDTH 15.4 % (11.5-15.5)
--- NOTE | 2023-11-13 07:58 | NUR ---
Pt sitting bedside, completing ADLs. States 'I slept really wel; from midnight to about 5". No distress, no complaints.
[2023-11-13] MEDS ORDERED: IBUPROFEN 600 MG/TAB PO PRN (09:55)
--- NOTE | 2023-11-13 11:58 | NUR ---
Pt resting in bed, eating lunch. Pt states, "I feel a little better". Will continue to monitor.
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
--- NOTE | 2023-11-13 16:00 | NUR ---
Pt resting in bed, eyes closed, easily awakes. No further concerns about unusual activity in his room. No complaints, no distress.
[2023-11-13 19:37] LABS: C. DIFFICILE TOXIN A&B NEGATIVE (NEGATIVE)
--- NOTE | 2023-11-13 20:00 | NUR ---
REPORT RECIEVED FROM [facility] NURSE. SHELLEY SALGADO. PT RESTING IN BED WATCHING TELEVISION. PT IS A&O X3, AND ABLE TO MAKE NEEDS KNOWN. SCD AT FOOT OF BED. BOWEL SOUNDS ACTIVE X4 QUADRANTS, WITH NO ABDOMINAL TENDERNESS. DRESSING NOTED TO LOWER ABDOMEN, DRESSING IS INTACT. SKIN SURROUNDING DRESSING APPEARS HEALTHY WITH NO REDNESS OR WARMTH. LUNG SOUNDS CLEAR UPON AUSCULTATION. COLOSTOMY NOTED TO RIGHT ABDOMEN, PRODUCING WATERY CONTENTS IN BAG. NO COMPLAINTS OFFERED FROM PT AT THIS TIME. PT EDUCATED ON MEDICATION SCHEDULE AND POC. PERIPHERAL PULSES STRONG. CALL LIGHT IN REACH, AND SAFETY PRECAUTIONS IN PLACE.
--- NOTE | 2023-11-13 23:45 | NUR ---
PT RESTING IN BED WATCHING TELEVISION. NO COMPLAINTS OFFERED AT THIS TIME. DRESSING TO ABDOMEN CHANGED PER MD ORDERS. PT TOLERATED WELL WITH NO COMPLAINTS VOICED. NO S&S OF DISTRESS NOTED AT THIS TIME. CALL LIGHT IN REACH, AND SAFETY PRECAUTIONS IN PLACE.
--- NOTE | 2023-11-14 04:10 | NUR ---
PT RESTING IN BED ON (R) SIDE, WITH EYES CLOSED. RESPIRATIONS ARE EVEN AND UNLABORED. PT DOES NOT OFFER ANY COMPLAINTS AT THIS TIME. NO S&S OF DISTRESS NOTED. CALL LIGHT IN REACH, AND SAFETY PRECAUTIONS IN PLACE.
[2023-11-14 04:34] VITALS: BP 114/77
[2023-11-14 04:56] LABS: BASO% 0.6 % (0-3); EOS% 5.1 % (0-8); IMMATURE GRANULOCYTES 0.6 % (0.0-5.0); LYMPH% 19.8 % (15-41); MEAN CORPUSCULAR HGB 29.9 pG CALC (26.0-32.0); MEAN CORPUSCULAR HGB CONC 34.3 g/dL CAL (32.0-36.0); MONO% 13.3 % (2-13); NEUT# 4.19 thou/uL (1.82-7.42); NEUT% 60.6 % (42-76); RED BLOOD COUNT 3.45 mill/uL (4.70-6.10); RED CELL DISTRI WIDTH 15.3 % (11.5-15.5)
[2023-11-14 05:05] LABS: HEMOGLOBIN 10.3 g/dl (14.0-18.0)
[2023-11-14 06:58] VITALS: BP 119/81
--- NOTE | 2023-11-14 07:21 | NUR ---
PATIENT LAYING IN BED QUIETLY. PATIENT A&OX4 AND ABLE TO MAKE NEEDS KNOWN. PATIENT ABDOMEN SOFT, COLOSTOMY INTACT AND DRAINING, RESPIRATIONS EVEN AND UNLABORED, PEDAL PULSES PRESENT. PATIENT DENIES ANY NEEDS AT THIS TIME. WILL CONTINUE TO MONITOR.
[2023-11-14 10:21] VITALS: BP 120/75
--- NOTE | 2023-11-14 11:41 | NUR ---
PATIENT LAYING IN BED WITH EYES CLOSED BUT EASILY AROUSED. PATIENT DENIES ANY NEEDS AT THIS TIME. WILL CONTINUE TO MONITOR.
--- NOTE | 2023-11-14 13:19 | NUR ---
patient ambulated down hallway with stand by assistance.
[2023-11-14] MEDS ORDERED: DIATRIZOATE MEGLUMINE & SODIUM 30 ML/BTL BTL PO SCH (13:30)
--- NOTE | 2023-11-14 15:51 | NUR ---
PATIENT LAYING IN BED. FAMILY AT BEDSIDE. PATIENT DENIES ANY NEEDS AT THIS TIME. WILL CONTINUE TO MONITOR.
[2023-11-14 18:25] VITALS: BP 138/87
--- NOTE | 2023-11-14 20:00 | NUR ---
REPORT RECEIVED FROM [facility] NURSE. SAROJ SALGADO PT SITTING UP ON SIDE OF BED. PT IS A&O X3, AND ABLE TO MAKE NEEDS KNOWN. FAMILY AT BEDSIDE. COLONOSTOMY NOTED TO (R) ABDOMEN. PT STATES THAT HE EMPTIED THE BAG RIGHT BEFORE THIS ENROLLED NURSE ENTERED THE ROOM. DRESSING NOTED TO LOWER ABDOMEN/SUPRAPUBIC AREA, DRESSING IS INTACT. BOWEL SOUNDS ACTIVE X4 QUADRANTS, ABDOMEN IS DISTENDED AND FIRM UPON PALPATION. PT STATES PAIN OF 4, WILL FOLLOW UP PER EMAR. LUNG SOUNDS CLEAR UPON AUSCULTATION. PT IS ON ROOM AIR. PERIPHERAL PULSES STRONG. NO FURTHER COMPLAINTS VOICED FROM PT AT THIS TIME. PT EDUCATED ON POC AND MEDICATION SCHEDULE. CALL LIGHT IN REACH, AND SAFETY PRECAUTIONS IN PLACE.
--- NOTE | 2023-11-15 00:23 | NUR ---
PT RESTING IN BED WITH EYES CLOSED. RESPIRATIONS ARE EVEN AND UNLABORED. PT IS EASILY AROUSABLE. COLOSTOMY WAFER AND BAG CHANGED AT 2200, WITH NO COMPLAINTS VOICED. STOOL NOTED IN BAG. NO S&S OF DISTRESS NOTED FROM THE PT AT THIS. CALL LIGHT IN REACH, AND SAFETY PRECAUTIONS IN PLACE.
[2023-11-15 03:43] VITALS: BP 135/87
--- NOTE | 2023-11-15 04:10 | NUR ---
PT RESTING IN BED WITH EYES CLOSED. RESPIRATIONS ARE EVEN AND UNLABORED, PT IS EASILY AROUSABLE. PT DOES NOT OFFER ANY COMPLAINTS. PT DOES NOT SHOW ANY S&S OF DISTRESS AT THIS TIME. CALL LIGHT IN REACH, AND SAFETY PRECAUTIONS IN PLACE.
[2023-11-15 06:58] VITALS: BP 136/92
--- NOTE | 2023-11-15 09:01 | NUR ---
PT RESTING IN BED, BED LOCKED AND LOW, CALL LIGHT WITHIN REACH. NO DISTRESS REPORTED OR OBSERVED. PLAN OF CARE REVIEWED WITH PT, QUESTIONS ENCOURAGED AND ANSWERED TO BEST ABILITY WITHIN SCOPE OF PRACTICE. NO FURTHER QUESTIONS AT THIS TIME. PT ENCOURAGED TO REACH OUT TO STAFF FOR ANY FURTHER QUESTIONS OR NEEDS. WILL CONTINUE TO MONITOR.
[2023-11-15 10:23] VITALS: BP 117/85
[2023-11-15] MEDS ORDERED: MAGNESIUM CITRATE 296 ML/BTL PO SCH (11:30)
[2023-11-15 15:22] VITALS: BP 122/91
[2023-11-15 19:00] VITALS: BP 146/92
--- NOTE | 2023-11-15 20:00 | NUR ---
PT RESTING IN BED WATCHING TV, FAMILY PRESENT. WOUND CLEANSED, PAT DRY, PACKED WITH DRY DRESSING AND GAUZE DRESSING PLACED TO OUTSIDE. PT TOLERATED WELL. MILD BLOOD TINGED DRAINAGE ASSESS. CALL LIGHT WITHIN REACH.
--- NOTE | 2023-11-15 20:42 | NUR ---
Patient asked to check glucose and 100 was glucose after dinner.
[2023-11-16] VITALS (11 sets, daily range): BP systolic 134–170; BP diastolic 95–115
--- NOTE | 2023-11-16 04:00 | NUR ---
PT RESTING IN BED, NO S/S OF DISTRESS. PT COMPLAINING OF NOT SLEEPING WELL DUE TO ANXIETY ABOUT SX. THIS REASSURED PT THAT EVERYTHING WILL BE OK, AND IF HE WOULD LIKE SOMETHING TO CALM HIM B4 SX THAT WOULD BE POSSIBLE HE DECLINED. WILL CONTINUE TO MONITOR.
[2023-11-16 05:16] LABS: BASO% 0.8 % (0-3); EOS% 6.2 % (0-8); HEMATOCRIT 30.1 % (39.0-50.0); HEMOGLOBIN 10.4 g/dl (14.0-18.0); IMMATURE GRANULOCYTES 0.5 % (0.0-5.0); LYMPH% 33.6 % (15-41); MEAN CELL VOLUME 86.2 fL CALC (80.0-100.0); MEAN CORPUSCULAR HGB 29.8 pG CALC (26.0-32.0); MEAN CORPUSCULAR HGB CONC 34.6 g/dL CAL (32.0-36.0); MONO% 13.1 % (2-13); NEUT# 3.02 thou/uL (1.82-7.42); NEUT% 45.8 % (42-76); RED BLOOD COUNT 3.49 mill/uL (4.70-6.10); RED CELL DISTRI WIDTH 14.8 % (11.5-15.5)
[2023-11-16 05:29] LABS: CREATININE 0.9 mg/dL (0.7-1.3); POTASSIUM 4.1 mmol/l (3.5-5.1)
--- NOTE | 2023-11-16 07:05 | NUR ---
Report received from web consultant nurse. Patient is going to OR today for colostomy reversal. OR team at bedside taking patient down, patient is able to amubulate to stretcher. A&Ox4, on room air, VS WNL.
[2023-11-16] MEDS ORDERED: SODIUM CHLORIDE 0.9% 1,000 ML IV ONE (07:12)
[2023-11-16] MEDS ORDERED: SODIUM CHLORIDE 0.9% 10 ML SYR ONE (07:12)
[2023-11-16] MEDS ORDERED: LIDOcaine HCl 1% (Local Anesth.) 20 ML VIAL ONE (07:14)
[2023-11-16] MEDS ORDERED: SODIUM CHLORIDE 1,000 ML BTL IR ONE (07:15)
[2023-11-16] MEDS ORDERED: STERILE WATER FOR IRRIGATION 1,000 ML BTL IR ONE (07:15)
[2023-11-16] MEDS ORDERED: FAMOTIDINE 10MG/ML 2ML SDV IV ONE (07:24)
[2023-11-16] MEDS ORDERED: DEXTROSE 5% w/NACL 0.45 1,000 ML IV PRN (09:05)
[2023-11-16] MEDS ORDERED: HYDROmorphone HCL 2 MG/AMP IV PRN (09:05)
[2023-11-16] MEDS ORDERED: SIMETHICONE 20 MG/0.3 ML PO PRN (09:05)
[2023-11-16] MEDS ORDERED: ACETAMINOPHEN 100 ML IV ONE (09:14)
[2023-11-16] MEDS ORDERED: HYDROmorphone HCL 2 MG/AMP ONE (09:14)
--- NOTE | 2023-11-16 10:15 | NUR ---
Patient arrived from PACU to unit. On strecther, at bedside. Patient A&Ox4, on room air, c/o 10/10 pain at surgical site. Dressing clean, dry and intact. Medicated with PRN pain meds. IV fluids started as ordered. VS WNL, NSR on tele monitor. All needs addressed at this time, call light within reach.
--- NOTE | 2023-11-16 12:00 | NUR ---
Patient is resting in bed, c/o pain on abdomen, going to medicate with pain medication. Patient is A&Ox4, on room air, at bedside. IV fluids running as ordered. Incentive spirometer given to patient per his request. All needs addressed at this time, call light within reach.
[2023-11-16] MEDS ORDERED: SUGAMMADEX SODIUM 200 MG/2 ML SDV IV ONE (14:50)
[2023-11-16] MEDS ORDERED: ROCURONIUM BROMIDE 10 MG/ML 5ML VIAL IV ONE (14:50)
[2023-11-16] MEDS ORDERED: MIDAZOLAM HCL 2 MG/2 ML VIAL IV ONE (14:50)
[2023-11-16] MEDS ORDERED: DEXAMETHASONE SODIUM PHOSPHATE PF 10 MG/ML SDV IV ONE (14:50)
[2023-11-16] MEDS ORDERED: ONDANSETRON HCl 4 MG/2 ML SDV IV ONE (14:50)
[2023-11-16] MEDS ORDERED: ESMOLOL HCL 10 MG/ML VIAL IV ONE (14:50)
[2023-11-16] MEDS ORDERED: SUCCINYLCHOLINE CHLORIDE 20 MG/ML 10ML VIAL IV ONE (14:50)
[2023-11-16] MEDS ORDERED: LIDOCAINE HCL 2% 2ML SDV IV ONE (14:50)
[2023-11-16] MEDS ORDERED: KETOROLAC TROMETHAMINE 30 MG/ML SDV IV ONE (14:50)
[2023-11-16] MEDS ORDERED: PROPOFOL 200 MG/20 ML VIAL IV ONE (14:50)
--- NOTE | 2023-11-16 16:00 | NUR ---
Patient is resting in bed, denies any pain at this time. A&Ox4, placed on 2L NC per patient request, at bedside. IV fluids running as ordered. All needs addressed at this time, call light within reach.
--- NOTE | 2023-11-16 20:00 | NUR ---
PT RESTING IN BED WATCHING TV, WITH BEDSIDE. PT CONCERNED ABOUT PRIOR WOUND TO LOWER ABD, DUE TO NEW BANDAGE COVERING SUPRAPUBIC AREA AND UNABLE ACCESS THE WOUND FOR WOUND CARE. REASSURED PT THAT FIRST NEW BANDAGE IS TO BE REMOVED BY SX MD, HOWEVER INFORMED PT NO DRAINAGE WAS SEEN AND THAT IT WOULD BE OK UNTIL MD CHECKS SX INCISION, PT VERBALIZED UNDERSTANDING. CALL LIGHT WITHIN REACH.
[2023-11-17] VITALS (7 sets, daily range): BP systolic 138–160; BP diastolic 87–98
[2023-11-17 04:49] LABS: BASO% 0.2 % (0-3); EOS% 0.1 % (0-8); HEMATOCRIT 29.3 % (39.0-50.0); IMMATURE GRANULOCYTES 0.3 % (0.0-5.0); LYMPH% 23.3 % (15-41); MEAN CELL VOLUME 86.2 fL CALC (80.0-100.0); MEAN CORPUSCULAR HGB 29.4 pG CALC (26.0-32.0); MEAN CORPUSCULAR HGB CONC 34.1 g/dL CAL (32.0-36.0); NEUT# 5.86 thou/uL (1.82-7.42); NEUT% 66.1 % (42-76); RED BLOOD COUNT 3.4 mill/uL (4.70-6.10); RED CELL DISTRI WIDTH 14.4 % (11.5-15.5)
[2023-11-17] MEDS ORDERED: oxyCODONE 10MG/APAP 325 MG 1 COMBO TAB PO PRN (10:20)
--- NOTE | 2023-11-17 10:53 | NUR ---
PATIENT RESTING IN BED, BED LOCKED AND LOW, CALL LIGHT WITHIN REACH. NO DISTRESS REPORTED OR OBSERVED. PLAN OF CARE REVIEWED WITH PATIENT, QUESTIONS ENCOURAGED AND ANSWERED TO BEST ABILITY WITHIN SCOPE OF PRACTICE. NO FURTHER QUESTIONS AT THIS TIME. PATIENT ENCOURAGED TO REACH OUT TO STAFF IF ANY NEEDS ARISE. WILL CONTINUE TO MONITOR.
[2023-11-17] MEDS ORDERED: KETOROLAC TROMETHAMINE 15 MG/ML SDV IV SCH (12:00)
--- NOTE | 2023-11-17 19:45 | NUR ---
PATIENT OBSERVED RESTING IN BED. ALERT AND ABLE TO MAKE NEEDS KNOWN. ASSESSMENT COMPLETE. NO COMPLAINTS OF PAIN AT THIS TIME. NO DISTRESS NOTED. DRESSING TO ABDOMEN AND LOWER ABDOMEN INTACT. PATIENT DENIES NEEDING ANYTHING AT THIS TIME. BED IN LOW POSITION. CALL VASQUEZ IN REACH.
[2023-11-18] VITALS (7 sets, daily range): BP systolic 119–165; BP diastolic 42–99
--- NOTE | 2023-11-18 00:07 | NUR ---
PATIENT RECEIVED SCHEDULED TORADOL. TOLERATED WELL. PATIENT ALSO VOIDED IN RESTROOM WITHOUT DIFFICULTY. DENIES NEEDING ANYTHING AT THIS TIME. BED REMAINS IN LOW POSITION. CALL VASQUEZ IN REACH.
--- NOTE | 2023-11-18 04:39 | NUR ---
PATIENT REMAINS RESTING IN BED. NO COMPLAINTS VOICED AT THIS TIME. DENIES NEEDING ANYTHING AT THIS TIME. BED REMAINS IN LOW POSITION. CALL VASQUEZ IN REACH.
--- NOTE | 2023-11-18 06:39 | NUR ---
DRESSING CHANGED TO ABDOMEN SITES X2. SMALL AMOUNT OF RED DRAINAGE TO PACKING. WOUNDBEDS TO BOTH SITES APPEAR DARK PINK. SUTURES REMAIN IN PLACE TO COLOSTOMY REVERSAL SITE. PATIENT TOLERATED DRESSING CHANGE WELL.
--- NOTE | 2023-11-18 20:11 | NUR ---
REPORT RECIEVED. PT A/OX4. ASSESSMENT COMPLETED. RR EVEN AND UNLABORED ON ROOM AIR. #20G RW PATENT. DRESSING TO ABD CDI. PT C/O 09/25 ABD PAIN, TO BE MEDICATED PER EMAR. PT DENIES OF ANY ADDITIONAL NEEDS AT THIS TIME. ALL SAFETY PRECAUTIONS ARE IN PLACE WITH CALL LIGHT IN REACH.
--- NOTE | 2023-11-19 00:20 | NUR ---
PT RESTING IN SEMI FOWLERS POSITION. SCHEDULED MEDICATIONS ADMINISTERED. PT DENIES OF ANY ADDITIONAL NEEDS. ALL SAFETY PRECAUTIONS ARE IN PLACE WITH CALL LIGHT IN REACH
[2023-11-19 03:58] VITALS: BP 154/98
[2023-11-19 04:12] VITALS: BP 154/98
--- NOTE | 2023-11-19 04:34 | NUR ---
PT SLEEPING. RR EVEN AND UNLABORED. NO DISTRESS NOTED. SAFETY PRECAUTIONS IN PLACE. CALL LIGHT IN REACH
[2023-11-19 06:50] VITALS: BP 161/98
--- NOTE | 2023-11-19 07:10 | NUR ---
pt awake in bed; no apparent distress noted; assessment completed at this time; pt alert and oriented; pt with complaints of pain, prev medicated; resp unlabored; abd soft/ tender with bs present; pt admits to bm; dressing cdi to lower mid to right abd; no drainage noted; #22 to rfa flushed and patent; no redness or edema noted at site; call light within reach; will continue to monitor
[2023-11-19 08:46] VITALS: BP 161/98
--- NOTE | 2023-11-19 08:54 | NUR ---
Dr Reeder present at bedside
[2023-11-19] MEDS ORDERED: PERCOCET 10/31 COMBO PO (09:07)
--- NOTE | 2023-11-19 10:00 | NUR ---
dressing changed to abd incision/wound; sterile 2x2 packed to open wound to lower mid abd; incision noted with sutures covered with 4x4, abd pad and paper tape; pt tolerated well; dressing changes explained to pt and spouse; will continue to monitor
--- NOTE | 2023-11-19 11:45 | NUR ---
Discharge instructions given. Patient verbalizes understanding of same. Discharged in stable condition via Ambulatory to Home with family. All belongings sent with pt.
== END 2023-11-19 12:00 | disposition home or self-care (01) | DRG 858 ==
LOC: ED 11:05 → ED-I 15:50 → ED 16:45 → MS2 16:47
PROVIDERS: Family Medicine; ADMIT Surgery; ATTEND Surgery
PROC: 0J980ZZ Drainage of Abdomen Subcutaneous Tissue and Fascia, Open Approach (ICD-10-PCS; principal; 2023-11-12)
PROC: 0DSH0ZZ Reposition Cecum, Open Approach (ICD-10-PCS; 2023-11-16)
DX: T81.41XA Infection following a procedure, superficial incisional surgical site, initial encounter (principal); I10 Essential (primary) hypertension; F17.210 Nicotine dependence, cigarettes, uncomplicated; Y83.6 Removal of other organ (partial) (total) as the cause of abnormal reaction of the patient, or of later complication, without mention of misadventure at the time of the procedure; Z93.3 Colostomy status; Z90.49 Acquired absence of other specified parts of digestive tract; Z79.899 Other long term (current) drug therapy
CPT/HCPCS: J0131; J1100; Q9967